=== PATIENT | female | born 1970 | race African-American/Black ===

== ENCOUNTER 2016-08-15 09:49 | Inpatient (IN) | payer SELFPAY ==
[2016-08-15] VITALS (8 sets, daily range): BP systolic 134–186; BP diastolic 74–102
[~2016-08-15] VITALS: Ht 160 cm; Wt 120.7 kg
[~2016-08-15 09:49] MED LIST: AMLO10TA4 PO; ASPI81TA44 PO; ATOR20TA PO; FLUT1DIS3 INH; FURO-68 PO; Hydrocodone/Acetaminophen PO; LISI20TA PO; METO25TA4 PO; METO50TA2 PO; Metoprolol Tartrate PO; POTA20TA4 PO; VENTOLIN HFA18 GM IH
[2016-08-15 10:17] LABS: BASO % 1 % (0-3); EOS % 1 % (0-3); HEMATOCRIT 42.1 % (36.0-47.0); HEMOGLOBIN 13.9 g/dL (12.0-15.5); LYMPH # 1.8 x10^3/uL (1.0-4.8); LYMPH % 25 % (24-48); MEAN CORPUSCULAR HEMOGLOBIN 31 pg (25-35); MEAN CORPUSCULAR HGB CONC 33 g/dL (31-37); MEAN CORPUSCULAR VOLUME 93 fL (79-100); MONO % 10 % (0-9); NEUT % 64 % (31-73); PLATELET COUNT 164 x10^3/uL (140-400); RED BLOOD COUNT 4.53 x10^6/uL (3.50-5.40); RED CELL DISTRIBUTION WIDTH 15.3 % (11.5-14.5); WHITE BLOOD COUNT 7.2 x10^3/uL (4.0-11.0)
--- NOTE | 2016-08-15 10:31 | EKG ---
[facility] [address] [place] [address] Test Date: 2016-08-15 Test Time: 10:02:58 Pat Name: FABIO RIVAS Department: Room: Gender: F Presiding Steward: : 1970 Requested By: Wellington ROCHA Order Number: [id number] Reading MD: Mulu Jo Measurements Intervals [place] Rate: 81 P: AR: QRS: -74 QRSD: 152 T: 96 QT: 410 QTc: 482 Interpretive Statements SINUS RHYTHM, ABNORMAL LEFT AXIS DEVIATION LEFT ANTERIOR FASCICULAR BLOCK VENTRICULAR TRIPLET, PVCS ABNORMAL ECG Electronically Signed On 08-19-2016 10:11:57 DRY CLIPPER TENDER by Mulu Jo
--- NOTE | 2016-08-15 10:31 | RAD ---
Portable chest, 08/15/2016: History: Chest pain, shortness of breath Comparison is made to a study from 10/19/2015. The heart is enlarged. The pulmonary vascularity appears to be within normal limits. No pulmonary infiltrates are seen. There is no evidence of pleural fluid. IMPRESSION: 1. Cardiomegaly. 2. No acute abnormality is detected.
[2016-08-15 10:49] LABS: CALCIUM 9.4 mg/dL (8.5-10.1); CREATININE 1.2 mg/dL (0.6-1.0); GFR 58.5; POTASSIUM 4.3 mmol/L (3.5-5.1)
[2016-08-15 11:01] LABS: BARBITURATES NEG (NEG); BENZODIAZEPINES NEG (NEG); CANNABINOIDS POS (NEG); COCAINE NEG (NEG); ETHANOL, URINE NEG (NEG); METHADONE NEG (NEG); OPIATES NEG (NEG); PHENCYCLIDINE NEG (NEG)
--- NOTE | 2016-08-15 12:02 | PHYS DOC ---
Past Medical History Past Medical History: CHF, High Cholesterol, Hypertension Past Surgical History: Hysterectomy Additional Past Surgical Histo: FIBROIDS REMOVED Alcohol Use: None Drug Use: None Adult General Chief Complaint Chief Complaint: CHEST PAIN HPI HPI Patient is a 46 year old female who presents with exertional dyspnea, exertional lightheadedness, intermittent brief chest pain, orthopnea, and resting shortness of breath. States her symptoms have been for the past 2 weeks but worse in the past few days. She has had few episodes of nonbloody nonbilious emesis in the past 2 days. She has no current nausea. She states she feels like this with CHF exacerbations. She does not weigh herself at home. She denies cough, rhinorrhea, nasal congestion, myalgia, diarrhea, dysuria, leg pain or swelling, hemoptysis, fever or chills. She states she has been out of her medications for weeks due to insurance changes recently. She has restarted taking some, but not all of her medications in the past few days. Review of Systems Review of Systems Constitutional: Denies fever or chills [] Eyes: Denies change in visual acuity, redness, or eye pain [] HENT: Denies nasal congestion or sore throat [] Respiratory: Denies cough or shortness of breath [] Cardiovascular: No additional information not addressed in HPI [] GI: Denies abdominal pain, nausea, vomiting, bloody stools or diarrhea [] : Denies dysuria or hematuria [] Musculoskeletal: Denies back pain or joint pain [] Integument: Denies rash or skin lesions [] Neurologic: Denies headache, focal weakness or sensory changes [] Endocrine: Denies polyuria or polydipsia [] Allergies Allergies Allergies Coded Allergies Type Severity Reaction Last Updated Verified No Known Drug Allergies 08/01/14 No Physical Exam Physical Exam Constitutional: Well developed, well nourished, no acute distress, non-toxic appearance. [] HENT: Normocephalic, atraumatic, bilateral external ears normal, oropharynx moist, nose normal. [] Eyes: PERRLA, EOMI. [] Neck: Normal range of motion, supple. [] Cardiovascular: Irregular rhythm [] Lungs & Thorax: Bilateral breath sounds clear to auscultation [] Abdomen: Bowel sounds normal, soft, no tenderness. [] Skin: Warm, dry, no erythema, no rash. [] Back: No tenderness, no CVA tenderness. [] Extremities: No tenderness, ROM intact, no edema, no palpable cord. [] Neurologic: Alert and oriented X 3, normal motor function, normal sensory function, no focal deficits noted. [] Psychologic: Affect normal, judgement normal, mood normal. [] Current Patient Data Vital Signs Vital Signs Date Time Temp Pulse Resp B/P Pulse Ox O2 Delivery O2 Flow Rate FiO2 08/15/16 11:15 60 20 212/88 98 Room Air 08/15/16 10:09 98.2 98.2 Lab Values Laboratory Tests Test 08/15/16 10:07 08/15/16 10:30 White Blood Count 7.2x10^3/uL (4.0-11.0) Red Blood Count 4.53x10^6/uL (3.50-5.40) Hemoglobin 13.9g/dL (12.0-15.5) Hematocrit 42.1% (36.0-47.0) Mean Corpuscular Volume 93fL (79-100) Mean Corpuscular Hemoglobin 31pg (25-35) Mean Corpuscular Hemoglobin Concent 33g/dL (31-37) Red Cell Distribution Width 15.3% (11.5-14.5) H Platelet Count 164x10^3/uL (140-400) Neutrophils (%) (Auto) 64% (31-73) Lymphocytes (%) (Auto) 25% (24-48) Monocytes (%) (Auto) 10% (0-9) H Eosinophils (%) (Auto) 1% (0-3) Basophils (%) (Auto) 1% (0-3) Neutrophils # (Auto) 4.6x10^3uL (1.8-7.7) Lymphocytes # (Auto) 1.8x10^3/uL (1.0-4.8) Monocytes # (Auto) 0.7x10^3/uL (0.0-1.1) Eosinophils # (Auto) 0.0x10^3/uL (0.0-0.7) Basophils # (Auto) 0.0x10^3/uL (0.0-0.2) Sodium Level 141mmol/L (136-145) Potassium Level 4.3mmol/L (3.5-5.1) Chloride Level 105mmol/L (98-107) Carbon Dioxide Level 27mmol/L (21-32) Anion Gap 9 (6-14) Blood Urea Nitrogen 21mg/dL (7-20) H Creatinine 1.2mg/dL (0.6-1.0) H Estimated GFR (Cockcroft-Gault) 58.5 Glucose Level 126mg/dL (70-99) H Calcium Level 9.4mg/dL (8.5-10.1) Magnesium Level 1.5mg/dL (1.8-2.4) L Troponin I Quantitative 0.060ng/mL (0.000-0.055) IS-Gcq-R-Type Natriuretic Peptide 12972ey/mL (0-124) H Thyroid Stimulating Hormone (TSH) 1.025uIU/mL (0.358-3.74) Urine Opiates Screen Neg (NEG) Urine Methadone Screen Neg (NEG) Urine Barbiturates Neg (NEG) Urine Phencyclidine Screen Neg (NEG) Urine Amphetamine/Methamphetamine Neg (NEG) Urine Benzodiazepines Screen Neg (NEG) Urine Cocaine Screen Neg (NEG) Urine Cannabinoids Screen Pos (NEG) Urine Ethyl Alcohol Neg (NEG) Laboratory Tests 08/15/16 10:07 Laboratory Tests 08/15/16 10:07 EKG EKG EKG as interpreted by me as sinus rhythm with frequent PVCs of bigeminy and trigeminy, rate 81, T wave inversions in inferior and lateral leads. Unable to compare to prior Radiology/Procedures Radiology/Procedures Chest xray as interpreted by me with no acute cardiopulmonary disease process Course & Med Decision Making Course & Med Decision Making Pertinent Labs and Imaging studies reviewed. (See chart for details) Laboratory exam reveals elevated proBNP and mild elevation in troponin concerning for CHF exacerbation. Has elevated troponin at this level during prior visits as well during similar illness. EKG concerning for frequent PVCs. She also has hypomagnesemia, which will be replaced IV. Discussed admission with Dr. Haddad, who will admit. Cardiology consultation placed. Renee Disclaimer Dragon Disclaimer This electronic medical record was generated, in whole or in part, using a voice recognition dictation system. Departure Departure Impression: Primary Impression: CHF exacerbation Additional Impressions: Hypomagnesemia Elevated troponin Disposition: ADMITTED INPATIENT Condition: STABLE Referrals: NO PCP (PCP) Problem Qualifiers Primary Impression: CHF exacerbation Congestive heart failure type: unspecified congestive heart failure type Qualified Code: I50.9 - Heart failure, unspecified Wellington ROCHA MD Aug 15, 2016 12:02
[2016-08-15] MEDS ORDERED: NITROGLYCERIN SUBLINGUAL 0.4 MG BOTTLE OF 25. SL PRN (12:15)
[2016-08-15] MEDS ORDERED: ACETAMINOPHEN 325 MG TABLET. PO PRN (12:15)
[2016-08-15] MEDS ORDERED: ONDANSETRON PF 4 MG/2 ML VIAL. IV PRN (12:15)
--- NOTE | 2016-08-15 13:46 | ACF ---
Admission Forms Criteria HEART FAILURE: COMMON COMPLICATIONS Clinical Indications for Inpatient Care (Place 'X' for any and all applicable criteria): Ongoing inpatient care may be indicated for heart failure with ANY ONE of the following (1)(2)(3)(4)(5): [ ]I. Ongoing need for care for primary condition requiring frequent therapy adjustments because of changes in cardiac function (eg, drug dosage changes for drugs that are renally metabolized) [ ]II. New-onset heart failure [ ]III. Heart failure with decreased urine output not responsive to attempts to optimize volume status [ ]IV. Acute cardiac ischemia causing or associated with failure [X]V. Complications of heart failure, including ANY ONE of the following: [ ]a) Pericardial effusion [ ]b) Symptomatic pleural effusion [ ]c) O2 saturation <90% or PO2 < 60 mm Hg (8.0 kPa) on room air or require baseline supplemental O2 [ ]d) Tachypnea [X]e) Dyspnea [ ]f) Syncope [ ]g) Change in mental status [ ]h) Acute renal insufficiency that is severe (reduction of more than 50% in estimated glomerular filtration rate from baseline) or progressive reduction of more than 25% in estimated glomerular filtration rate from baseline, with creatinine continuing to rise) [ ]i) Hemodynamic instability [ ]j) Anasarca [ ]k) Clinically significant metabolic abnormalities due to heart failure (eg, new-onset metabolic acidosis) Extended stay beyond goal length of stay for primary condition may be needed until ALL of the following are present(1)(3): [ ]a) Stable and effective diuretic regimen established (or patient on stable dialysis regimen if in chronic renal failure) [ ]b) Breathing comfortably at rest [ ]c) Saturation of arterial oxygen greater than 90% or at acceptable baseline [ ]d) Pulmonary edema absent or improved [ ]e) Hemodynamic stability [ ]f) Volume status acceptable on oral medication [ ]g) Peripheral or sacral edema absent or improved [ ]h) Renal function stable and manageable at a lower level of care [ ]i) Complications (eg, pleural effusion) resolved or manageable at a lower level of care [ ]j) Patient or caregiver has received written discharge instructions or educational material addressing activity level, diet, discharge medications, follow-up appointment, weight monitoring, and what to do if symptoms worsen The original [facility] content created by [employer] has been revised. The portions of the content which have been revised are identified through the use of italic text or in bold, and [facility] has neither reviewed nor approved the modified material.All other unmodified content is copyright [facility]. Please see references footnoted in the original [facility] edition 2016 Admission Criteria Met?: Yes SELENA TIJERINA Aug 15, 2016 13:46
[2016-08-15] MEDS ORDERED: hydrALAZINE 20 MG/ML VIAL. IVP ONE (14:30)
[2016-08-15] MEDS ORDERED: MAGNESIUM SULFATE 2GM 50 ML IV ONE ×2 (14:45→22:30)
[2016-08-15] MEDS ORDERED: NON FORMULARY ITEM (Albuterol Sulfate (Ventolin Hfa Inhaler) 2 PUFF) IH SCH (14:45)
[2016-08-15] MEDS ORDERED: hydrALAZINE 20 MG/ML VIAL. IVP PRN (14:45)
--- NOTE | 2016-08-15 14:45 | PDOC2 ---
CARDIAC CONSULT DATE OF CONSULT Date of Consult DATE: 08/15/16 TIME: 14:30 REASON FOR CONSULT Reason for Consult: CHF exacerbation REFERRING PHYSICIAN Referring Physician: White SOURCE Source: Chart review, Patient HISTORY OF PRESENT ILLNESS HISTORY OF PRESENT ILLNESS This is a pleasant 46 yo female admitted for complains of SOA. Reports that at rest she is fine but with short ambulation, like going to the bathroom she gets SOA. Reports that this has been going on in the last 2 weeks. She has been compliant with her home medications including her lasix till 3 weeks ago when she ran out of most of her medications. 2 weeks ago is when she started having TYLER. She has been having issues with financial means trying to obtain medical insurance. She finally was able to obtain most of her routine medications about a week ago but her symptoms continued to progress despite her restarting. Reports of orthopnea, PND, intermittent dry intractable coughing, continued TYLER at short distance walking, focal mid chest tightness and [place]. Also with anorexia, polydipsia, increased urination prompting her to drink more. Also has been having nausea with last vomiting episode last night. Reports also of self limiting diarrhea and vomiting last week x3 days. PAST MEDICAL HISTORY Past Medical History Cardiovascular: CHF (NICM), HTN, Hyperlipidemia, Valve insufficiency Pulmonary: COPD (?) CENTRAL NERVOUS SYSTEM: Other (no pertinent history) GI: No pertinent hx Heme/Onc: No pertinent hx Hepatobiliary: No pertinent hx Psych: No pertinent hx Musculoskeletal: Osteoarthritis Rheumatologic: No pertinent hx Infectious disease: No pertinent hx ENT: No pertinent hx Renal/: No pertinent hx Endocrine: Diabetes (gestational) Dermatology: No pertinent hx PAST SURGICAL HISTORY Past Surgical History: Hysterectomy FAMILY HISTORY Family History noncontributory SOCIAL HISTORY Social History Smoke: Quit 05/2016 24 pk yr ALCOHOL: none Drugs: None Lives: with Family CURRENT MEDICATIONS CURRENT MEDICATIONS Current Medications Medications (Trade) Dose Ordered Sig/Shaheed Route PRN Reason Start Time Stop Time Status Last Admin Dose Admin Acetaminophen (Tylenol) 650 mg PRN Q4HRS PRN PO FEVER 08/15/16 12:15 08/16/16 12:14 08/15/16 12:13 Hydralazine HCl (Apresoline) 10 mg 1X ONCE IVP 08/15/16 14:30 08/15/16 14:31 08/15/16 14:24 ALLERGIES ALLERGIES: Coded Allergies: No Known Drug Allergies (Unverified , 08/01/14) ROS Review of System 14 point ROS evaluated with pertinent positives noted per HPI PHYSICAL EXAM General: Alert, Oriented X3, Cooperative, No acute distress HEENT: Atraumatic, Mucous membr. moist/pink Lungs: Clear to auscultation, Normal air movement Heart: Regular rate, Normal S1, Normal S2, Other (2/6 systolic murmur to LLS border) Abdomen: Soft, Other (morbid obesity) Extremities: No cyanosis, Other (2+ bilateral LE pitting edema) Skin: No breakdown, No significant lesion Neuro: Normal speech, Sensation intact Psych/Mental Status: Mental status NL, Mood NL MUSCULOSKELETAL: Osteoarthritic changes both hands VITALS VITALS Vital Signs Date Time Temp Pulse Resp B/P Pulse Ox O2 Delivery O2 Flow Rate FiO2 08/15/16 14:24 59 186/102 08/15/16 13:15 20 96 Room Air 08/15/16 10:09 98.2 98.2 LABS Lab: Laboratory Tests Test 08/15/16 10:07 08/15/16 10:30 White Blood Count 7.2x10^3/uL (4.0-11.0) Red Blood Count 4.53x10^6/uL (3.50-5.40) Hemoglobin 13.9g/dL (12.0-15.5) Hematocrit 42.1% (36.0-47.0) Mean Corpuscular Volume 93fL (79-100) Mean Corpuscular Hemoglobin 31pg (25-35) Mean Corpuscular Hemoglobin Concent 33g/dL (31-37) Red Cell Distribution Width 15.3% (11.5-14.5) Platelet Count 164x10^3/uL (140-400) Neutrophils (%) (Auto) 64% (31-73) Lymphocytes (%) (Auto) 25% (24-48) Monocytes (%) (Auto) 10% (0-9) Eosinophils (%) (Auto) 1% (0-3) Basophils (%) (Auto) 1% (0-3) Neutrophils # (Auto) 4.6x10^3uL (1.8-7.7) Lymphocytes # (Auto) 1.8x10^3/uL (1.0-4.8) Monocytes # (Auto) 0.7x10^3/uL (0.0-1.1) Eosinophils # (Auto) 0.0x10^3/uL (0.0-0.7) Basophils # (Auto) 0.0x10^3/uL (0.0-0.2) Sodium Level 141mmol/L (136-145) Potassium Level 4.3mmol/L (3.5-5.1) Chloride Level 105mmol/L (98-107) Carbon Dioxide Level 27mmol/L (21-32) Anion Gap 9 (6-14) Blood Urea Nitrogen 21mg/dL (7-20) Creatinine 1.2mg/dL (0.6-1.0) Estimated GFR (Cockcroft-Gault) 58.5 Glucose Level 126mg/dL (70-99) Calcium Level 9.4mg/dL (8.5-10.1) Magnesium Level 1.5mg/dL (1.8-2.4) Troponin I Quantitative 0.060ng/mL (0.000-0.055) QH-Sfj-L-Type Natriuretic Peptide 35041bl/mL (0-124) Urine Opiates Screen Neg (NEG) Urine Methadone Screen Neg (NEG) Urine Barbiturates Neg (NEG) Urine Phencyclidine Screen Neg (NEG) Urine Amphetamine/Methamphetamine Neg (NEG) Urine Benzodiazepines Screen Neg (NEG) Urine Cocaine Screen Neg (NEG) Urine Cannabinoids Screen Pos (NEG) Urine Ethyl Alcohol Neg (NEG) ECHOCARDIOGRAM ECHOCARDIOGRAM <Conclusion> Left ventricle systolic function is severely impaired. The Ejection Fraction is 20-25%. There is global hypokinesis of the left ventricle. Suspect at least grade 2-3 diastolic dysfunction (moderate to severe) Doppler and Color Flow revealed moderate tricuspid regurgitation. There is moderate pulmonary hypertension. The PA pressure was estimated at 66 mmHg. DATE: 10/19/15 1751 HEART CATH HEART CATH CORONARY FINDINGS: LM is a long large caliber vessel with normal angiographic appearance. LAD is a large caliber tortous vessel with normal angiographic appearance. The LAD gives rise to two small caliber diagonal vessels with normal angiographic appearance. LCx is a large caliber non-dominant vessel with normal angiographic appearance. The LCx gives rise to two moderate caliber obtuse marginal vessels with normal angiographic appearance. RCA is a moderate caliber dominant vessel with normal angiographic appearance. Conclusion 1. Mildly elevated left ventricular filling pressures. 2. Mild to moderate LV dysfunction. EF 40% 3. Normal angiographic appearance of the coronary arteries. 4. Successful angioseal closure of the RCFA. 5. Frequent PVC's. Recommendations Aggressive Medical Therapy DATE: 05/04/15 1049 ASSESSMENT/PLAN ASSESSMENT/PLAN 1. Acute on chronic combined diastolic/systolic CHF: mainly right sided. 2. 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 NICM: Last noted EF 20-25%. Failed to follow up in our office for TTE reevaluation for consideration for AICD. 4. Accelerated HTN: due to noncompliance 5. HLP 6. Arrhythmia: multiple PVCs including NSVT. 7. Hypomagnesemia 8. Marijuana use 9. CKD3 Recommendations 1. Continue with diuretic therapy 2. CT chest noncontrast, TTE 3. Resume home routine antiHTN, Hydralazine IV PRN. Change lisinopril to losartan with notable dry cough. 4. Discussed compliance to treatment plans. 5. SW and CM consult. 6. Replace Mg. Restart metoprolol 7. TSH, lipid panel. Lytes in AM. 8. Continue with secondary prevention measures. Problems: AMAN BARRON APRN Aug 15, 2016 14:45
[2016-08-15] MEDS ORDERED: ALBUTEROL SULFATE 2.5 MG/3 ML NEBU. NEB PRN (15:15)
--- NOTE | 2016-08-15 16:03 | PDOC1 ---
History and Physical Date of Admission Date of Admission DATE: 08/15/16 TIME: 15:57 Identification/Chief Complaint Chief Complaint short of breath Source Source: Chart review, Patient History of Present Illness History of Present Illness Ms. Benitez, is a 46 year old female admitted for acute dyspnea, w. chest pain , 11/16./ She also complains of exertional lightheadedness, new orthopnea, and resting shortness of breath. Per CV history, pt has not taken her medicines for a period of time, just started back 2 days ago, all meds but Lisinopril Pt was ill last week, a few days of malaise and myalgia with diarrhea dyspnea feels better after lasix given in the ER she reports no current primary care due to change in her insurance Past Medical History Cardiovascular: CHF, HTN, Hyperlipidemia, Valve insufficiency Pulmonary: COPD CENTRAL NERVOUS SYSTEM: Other GI: No pertinent hx Heme/Onc: No pertinent hx Hepatobiliary: No pertinent hx Psych: No pertinent hx Musculoskeletal: Osteoarthritis Rheumatologic: No pertinent hx Infectious disease: No pertinent hx Renal/: No pertinent hx Endocrine: Diabetes Past Surgical History Past Surgical History: Hysterectomy Family History Family History: No Significant Social History Smoke: No ALCOHOL: none Drugs: Marijuana Current Problem List Problem List Problems Medical Problems: (1) CHF exacerbation Status: Acute (2) Elevated troponin Status: Acute (3) Hypomagnesemia Status: Acute Problems: Current Medications Current Medications Current Medications Ondansetron HCl (Zofran) 4 mg PRN Q8HRS PRN IV NAUSEA/VOMITING; Start 08/15/16 at 12:15; Stop 08/16/16 at 12:14 Acetaminophen (Tylenol) 650 mg PRN Q4HRS PRN PO FEVER Last administered on 12:13; Start 08/15/16 at 12:15; Stop 08/16/16 at 12:14 Nitroglycerin (Nitrostat) 0.4 mg PRN Q5MIN PRN SL CHEST PAIN; Start 08/15/16 at 12:15; Stop 08/16/16 at 12:14 Hydralazine HCl 10 mg 10 mg 1X ONCE IVP Last administered on 08/15/16 14:24; Start 08/15/16 at 14:30; Stop 08/15/16 at 14:31; Status DC Magnesium Sulfate/ Dextrose (Magnesium Sulfate PREMIX 2GM) 50 ml @ 25 mls/hr 1X ONCE IV Last administered on 08/15/16t 15:25; Start 08/15/16 at 14:45; Stop 08/15/16 at 16:44 Hydralazine HCl (Apresoline) 10 mg PRN Q4HRS PRN IVP ELEVATED BP, SEE COMMENTS ; Start 08/15/16 at 14:45 Amlodipine Besylate (Norvasc) 10 mg DAILY PO ; Start 08/16/16 at 09:00 Aspirin (Children'S Aspirin) 81 mg DAILYWBKFT PO ; Start 08/16/16 at 08:00 Atorvastatin Calcium (Lipitor) 20 mg QHS PO ; Start 08/15/16 at 21:00 Furosemide (Lasix) 40 mg DAILY PO ; Start 08/16/16 at 09:00; Stop 08/16/16 at 09: 00; Status DC Lisinopril (Prinivil) 40 mg DAILY PO ; Start 08/16/16 at 09:00; Stop 08/16/16 at 09:00; Status DC Metoprolol Tartrate (Lopressor) 25 mg BID PO ; Start 08/15/16 at 21:00 Potassium Chloride (Klor-Con) 20 meq DAILYWBKFT PO ; Start 08/16/16 at 08:00 Non-Formulary Medication 2 puff PRN Q4-6HRS IH ; Start 08/15/16 at 14:45; Status UNV Albuterol Sulfate (Ventolin Neb Soln) 2.5 mg PRN Q4HRS PRN NEB SHORTNESS OF BREATH; Start 08/15/16 at 15:15 Losartan Potassium (Cozaar) 100 mg DAILY PO ; Start 08/16/16 at 09:00 Furosemide (Lasix) 40 mg DAILY IVP ; Start 08/16/16 at 09:00 Active Scripts Active Metoprolol Tartrate 25 Mg Tablet 25 Mg PO BID Norvasc (Amlodipine Besylate) 10 Mg Tablet 10 Mg PO DAILY Ventolin Hfa Inhaler (Albuterol Sulfate) 18 Gm Hfa.aer.ad 2 Puff IH PRN Q4-6HRS Klor-Con M20 (Potassium Chloride) 20 Meq Tablet.er 20 Meq PO DAILYWBKFT Prinivil (Lisinopril) 20 Mg Tablet 40 Mg PO DAILY Lasix (Furosemide) 40 Mg Tablet 40 Mg PO DAILY Children's Aspirin (Aspirin) 81 Mg Tab.chew 81 Mg PO DAILYWBKFT Lipitor (Atorvastatin Calcium) 20 Mg Tablet 20 Mg PO QHS Allergies Allergies: Coded Allergies: No Known Drug Allergies (Unverified , 08/01/14) ROS General: YES: Fatigue, Malaise, No: Appetite, Chills, Night Sweats, Other PSYCHOLOGICAL ROS: No: Anxiety, Behavioral Disorder, Concentration difficultie , Decreased libido, Depression, Disorientation, Hallucinations, Hostility, Irritablity, Memory difficulties, Mood Swings, Obsessive thoughts, Other, Physical abuse, Sexual abuse, Sleep disturbances, Suicidal ideation Eyes: No Blurry vision, No Decreased vision, No Double vision, No Dry eyes, No Excessive tearing, No Eye Pain, No Itchy Eyes, No Loss of vision, No Other, No Photophobia, No Scotomata, No Uses contacts, No Uses glasses HEENT: YES: Heacaches, No: Epistaxis, Hearing change, Nasal congestion, Nasal discharge, Oral lesions, Other, Sinus pain, Sneezing, Snoring, Sore Throat, Tinnitus, Vertigo, Visual Changes, Vocal changes Respiratory: YES: SOB with excertion, Shortness of breath, No: Cough, Hemoptysis, Orthopnea, Other, Pleuritic Pain, Sputum Changes, Stridor, Tachypnea, Wheezing Cardiovascular: yes Orthopnea, yes Paroxysmal Noc. Dyspnea, No Chest Pain, No Lt Headedness, No Other, No Palpitations Gastrointestinal: Yes Diarrhea, Yes Nausea, No Abdominal Pain, No Constipation, No Hematochezia, No Melena, No Other, No Vomiting Genitourinary: No , No , No , No , No , No , No , No Discharge, No Dysuria, No Flank Pain, No Frequency, No Hematuria, No Incontinence, No Other, No Pain, No Retention, No Urgency Musculoskeletal: No Gait Disturbance, No Joint Pain, No Joint Stiffness, No Joint Swelling, No Muscle Pain, No Muscular Weakness, No Other, No Pain In:, No Swelling In: Neurological: No Behavorial Changes, No Bowel/Bladder ControlChng, No Confusion , No Dizziness, No Gait Disturbance, No Headaches, No Impaired Coord/balance, No Memory Loss, No Numbness/Tingling, No Other, No Seizures, No Speech Problems , No Tremors, No Visual Changes, No Weakness Skin: Yes Dry Skin, No Acne, No Eczema, No Hair Changes, No Lumps, No Mole Changes, No Mottling, No Nail Changes, No Other, No Pruritus, No Rash, No Skin Lesion Changes Physical Exam General: Alert, Oriented X3, Cooperative, mild distress HEENT: Atraumatic, EOMI, Mucous membr. moist/pink Lungs: Normal air movement Heart: no murmurs Abdomen: Normal bowel sounds, Soft Rectal Exam: not examined, deferred Extremities: No clubbing, Normal pulses, Other (1+ LE edema) Skin: No rashes, No significant lesion Neuro: Normal tone, Sensation intact Psych/Mental Status: Mental status NL, Mood NL Vitals Vitals Vital Signs Date Time Temp Pulse Resp B/P Pulse Ox O2 Delivery O2 Flow Rate FiO2 08/15/16 15:40 68 18 161/85 99 Room Air 08/15/16 14:15 97.7 97.7 Labs Labs Laboratory Tests Test 08/15/16 10:07 08/15/16 10:30 White Blood Count 7.2x10^3/uL (4.0-11.0) Red Blood Count 4.53x10^6/uL (3.50-5.40) Hemoglobin 13.9g/dL (12.0-15.5) Hematocrit 42.1% (36.0-47.0) Mean Corpuscular Volume 93fL (79-100) Mean Corpuscular Hemoglobin 31pg (25-35) Mean Corpuscular Hemoglobin Concent 33g/dL (31-37) Red Cell Distribution Width 15.3% (11.5-14.5) Platelet Count 164x10^3/uL (140-400) Neutrophils (%) (Auto) 64% (31-73) Lymphocytes (%) (Auto) 25% (24-48) Monocytes (%) (Auto) 10% (0-9) Eosinophils (%) (Auto) 1% (0-3) Basophils (%) (Auto) 1% (0-3) Neutrophils # (Auto) 4.6x10^3uL (1.8-7.7) Lymphocytes # (Auto) 1.8x10^3/uL (1.0-4.8) Monocytes # (Auto) 0.7x10^3/uL (0.0-1.1) Eosinophils # (Auto) 0.0x10^3/uL (0.0-0.7) Basophils # (Auto) 0.0x10^3/uL (0.0-0.2) Sodium Level 141mmol/L (136-145) Potassium Level 4.3mmol/L (3.5-5.1) Chloride Level 105mmol/L (98-107) Carbon Dioxide Level 27mmol/L (21-32) Anion Gap 9 (6-14) Blood Urea Nitrogen 21mg/dL (7-20) Creatinine 1.2mg/dL (0.6-1.0) Estimated GFR (Cockcroft-Gault) 58.5 Glucose Level 126mg/dL (70-99) Calcium Level 9.4mg/dL (8.5-10.1) Magnesium Level 1.5mg/dL (1.8-2.4) Troponin I Quantitative 0.060ng/mL (0.000-0.055) GJ-Afb-D-Type Natriuretic Peptide 85348li/mL (0-124) Thyroid Stimulating Hormone (TSH) 1.025uIU/mL (0.358-3.74) Urine Opiates Screen Neg (NEG) Urine Methadone Screen Neg (NEG) Urine Barbiturates Neg (NEG) Urine Phencyclidine Screen Neg (NEG) Urine Amphetamine/Methamphetamine Neg (NEG) Urine Benzodiazepines Screen Neg (NEG) Urine Cocaine Screen Neg (NEG) Urine Cannabinoids Screen Pos (NEG) Urine Ethyl Alcohol Neg (NEG) Laboratory Tests Test 08/15/16 10:07 08/15/16 10:30 White Blood Count 7.2x10^3/uL (4.0-11.0) Red Blood Count 4.53x10^6/uL (3.50-5.40) Hemoglobin 13.9g/dL (12.0-15.5) Hematocrit 42.1% (36.0-47.0) Mean Corpuscular Volume 93fL (79-100) Mean Corpuscular Hemoglobin 31pg (25-35) Mean Corpuscular Hemoglobin Concent 33g/dL (31-37) Red Cell Distribution Width 15.3% (11.5-14.5) Platelet Count 164x10^3/uL (140-400) Neutrophils (%) (Auto) 64% (31-73) Lymphocytes (%) (Auto) 25% (24-48) Monocytes (%) (Auto) 10% (0-9) Eosinophils (%) (Auto) 1% (0-3) Basophils (%) (Auto) 1% (0-3) Neutrophils # (Auto) 4.6x10^3uL (1.8-7.7) Lymphocytes # (Auto) 1.8x10^3/uL (1.0-4.8) Monocytes # (Auto) 0.7x10^3/uL (0.0-1.1) Eosinophils # (Auto) 0.0x10^3/uL (0.0-0.7) Basophils # (Auto) 0.0x10^3/uL (0.0-0.2) Sodium Level 141mmol/L (136-145) Potassium Level 4.3mmol/L (3.5-5.1) Chloride Level 105mmol/L (98-107) Carbon Dioxide Level 27mmol/L (21-32) Anion Gap 9 (6-14) Blood Urea Nitrogen 21mg/dL (7-20) Creatinine 1.2mg/dL (0.6-1.0) Estimated GFR (Cockcroft-Gault) 58.5 Glucose Level 126mg/dL (70-99) Calcium Level 9.4mg/dL (8.5-10.1) Magnesium Level 1.5mg/dL (1.8-2.4) Troponin I Quantitative 0.060ng/mL (0.000-0.055) UY-Ruk-Q-Type Natriuretic Peptide 77735ne/mL (0-124) Thyroid Stimulating Hormone (TSH) 1.025uIU/mL (0.358-3.74) Urine Opiates Screen Neg (NEG) Urine Methadone Screen Neg (NEG) Urine Barbiturates Neg (NEG) Urine Phencyclidine Screen Neg (NEG) Urine Amphetamine/Methamphetamine Neg (NEG) Urine Benzodiazepines Screen Neg (NEG) Urine Cocaine Screen Neg (NEG) Urine Cannabinoids Screen Pos (NEG) Urine Ethyl Alcohol Neg (NEG) VTE Prophylaxis Ordered VTE Prophylaxis Devices: Yes VTE Pharmacological Prophylaxi: Yes Assessment/Plan Assessment/Plan Acute exacerbation of systolic CHF fluid overload, IV lasix, CV consult repeat echo troponinemia, will trend hypomagnesemia obesity, BMI 40 htn, poor control THC use admit to CV care JANETH TORREZ MD Aug 15, 2016 16:02
--- NOTE | 2016-08-15 17:00 | RAD ---
Indication shortness of breath. History of COPD. Noncontrast imaging through the chest was performed. The noncontrast nature the study somewhat limits the exam. Note is made of a previous examination of the chest 10/19/2015. Imaging through the upper abdomen is unremarkable. Enlargement of the left lobe of the thyroid probably with some associated mediastinal extension is again noted. The appearance is very similar to the previous exam. A few mediastinal lymph nodes are noted. These also appear similar. Definite pathologic hilar or mediastinal adenopathy is not seen. An acute finding in the chest is not seen. A dominant soft tissue mass is not apparent. A significant change when compared to the previous exam is not seen. IMPRESSION: No acute finding. No significant change PQRS Compliance Statement: One or more of the following individualized dose reduction techniques were utilized for this examination: 1. Automated exposure control 2. Adjustment of the mA and/or kV according to patient size 3. Use of iterative reconstruction technique
[2016-08-15] MEDS: ATORVASTATIN CALCIUM 20 MG TABLET PO SCH (21:42)
[2016-08-15] MEDS: METOPROLOL TART IMMED RELEASE 25 MG TABLET PO SCH (21:44)
[2016-08-16 04:25] VITALS: BP 140/91
[2016-08-16 05:12] LABS: BASO % 1 % (0-3); EOS % 1 % (0-3); HEMATOCRIT 38.1 % (36.0-47.0); HEMOGLOBIN 12.3 g/dL (12.0-15.5); LYMPH # 1.8 x10^3/uL (1.0-4.8); LYMPH % 32 % (24-48); MEAN CORPUSCULAR HEMOGLOBIN 31 pg (25-35); MEAN CORPUSCULAR HGB CONC 32 g/dL (31-37); MEAN CORPUSCULAR VOLUME 95 fL (79-100); MONO % 11 % (0-9); NEUT % 55 % (31-73); PLATELET COUNT 141 x10^3/uL (140-400); RED BLOOD COUNT 4.03 x10^6/uL (3.50-5.40); RED CELL DISTRIBUTION WIDTH 15.6 % (11.5-14.5); WHITE BLOOD COUNT 5.6 x10^3/uL (4.0-11.0)
[2016-08-16 05:37] LABS: CALCIUM 8.8 mg/dL (8.5-10.1); CREATININE 1.1 mg/dL (0.6-1.0); GFR 64.7; MAGNESIUM 2.5 mg/dL (1.8-2.4); POTASSIUM 3.7 mmol/L (3.5-5.1)
[2016-08-16 07:50] VITALS: BP 189/96
[2016-08-16] MEDS: ASPIRIN 81 MG TAB.CHEW PO SCH (08:00)
[2016-08-16] MEDS ORDERED: POTASSIUM CHLORIDE 20 MEQ TABLET.ER. PO SCH (08:00)
[2016-08-16] MEDS: LOSARTAN POTASSIUM 50 MG TABLET. PO SCH (08:09)
[2016-08-16] MEDS ORDERED: FUROSEMIDE 40 MG TABLET PO SCH (09:00)
[2016-08-16] MEDS ORDERED: FUROSEMIDE 40 MG/4 ML VIAL IVP SCH (09:00)
[2016-08-16] MEDS ORDERED: AMLODIPINE BESYLATE 10 MG TABLET PO SCH (09:00)
[2016-08-16] MEDS: METOPROLOL TART IMMED RELEASE 25 MG TABLET PO SCH ×2 (09:00→20:50)
[2016-08-16] MEDS ORDERED: LISINOPRIL 20 MG TABLET PO SCH (09:00)
[2016-08-16 09:13] LABS: ALBUMIN 2.9 g/dL (3.4-5.0); DIRECT BILIRUBIN 0.3 mg/dL (0.0-0.2); TOTAL BILIRUBIN 0.8 mg/dL (0.2-1.0); TOTAL PROTEIN 6.6 g/dL (6.4-8.2)
--- NOTE | 2016-08-16 09:35 | PDOC ---
CARDIO Progress Notes Date and Time Date of Service 08/16/2016 Time of Evaluation 0900 Subjective Subjective: No Chest Pain, No shortness of breath, No Palpitations, No Dizziness, Other (SOA much better, appetite better) Vitals Vitals Vital Signs Date Time Temp Pulse Resp B/P Pulse Ox O2 Delivery O2 Flow Rate FiO2 08/16/16 09:00 62 165/78 08/16/16 07:51 Room Air 08/16/16 07:50 98.1 20 95 98.1 Weight Weight [ ] Input and Output Intake and Output Intake and Output 08/16/16 07:00 Intake Total 930 ml Output Total 850 ml Balance 80 ml Intake Oral 930 ml Output Urine Total 850 ml # Voids 1 Laboratory Labs Laboratory Tests Test 08/15/16 10:07 08/15/16 10:30 08/15/16 20:05 08/16/16 04:52 White Blood Count 7.2x10^3/uL (4.0-11.0) 5.6x10^3/uL (4.0-11.0) Red Blood Count 4.53x10^6/uL (3.50-5.40) 4.03x10^6/uL (3.50-5.40) Hemoglobin 13.9g/dL (12.0-15.5) 12.3g/dL (12.0-15.5) Hematocrit 42.1% (36.0-47.0) 38.1% (36.0-47.0) Mean Corpuscular Volume 93fL (79-100) 95fL (79-100) Mean Corpuscular Hemoglobin 31pg (25-35) 31pg (25-35) Mean Corpuscular Hemoglobin Concent 33g/dL (31-37) 32g/dL (31-37) Red Cell Distribution Width 15.3% (11.5-14.5) 15.6% (11.5-14.5) Platelet Count 164x10^3/uL (140-400) 141x10^3/uL (140-400) Neutrophils (%) (Auto) 64% (31-73) 55% (31-73) Lymphocytes (%) (Auto) 25% (24-48) 32% (24-48) Monocytes (%) (Auto) 10% (0-9) 11% (0-9) Eosinophils (%) (Auto) 1% (0-3) 1% (0-3) Basophils (%) (Auto) 1% (0-3) 1% (0-3) Neutrophils # (Auto) 4.6x10^3uL (1.8-7.7) 3.1x10^3uL (1.8-7.7) Lymphocytes # (Auto) 1.8x10^3/uL (1.0-4.8) 1.8x10^3/uL (1.0-4.8) Monocytes # (Auto) 0.7x10^3/uL (0.0-1.1) 0.6x10^3/uL (0.0-1.1) Eosinophils # (Auto) 0.0x10^3/uL (0.0-0.7) 0.1x10^3/uL (0.0-0.7) Basophils # (Auto) 0.0x10^3/uL (0.0-0.2) 0.0x10^3/uL (0.0-0.2) Sodium Level 141mmol/L (136-145) 141mmol/L (136-145) Potassium Level 4.3mmol/L (3.5-5.1) 3.7mmol/L (3.5-5.1) Chloride Level 105mmol/L (98-107) 105mmol/L (98-107) Carbon Dioxide Level 27mmol/L (21-32) 28mmol/L (21-32) Anion Gap 9 (6-14) 8 (6-14) Blood Urea Nitrogen 21mg/dL (7-20) 20mg/dL (7-20) Creatinine 1.2mg/dL (0.6-1.0) 1.1mg/dL (0.6-1.0) Estimated GFR (Cockcroft-Gault) 58.5 64.7 Glucose Level 126mg/dL (70-99) 100mg/dL (70-99) Calcium Level 9.4mg/dL (8.5-10.1) 8.8mg/dL (8.5-10.1) Magnesium Level 1.5mg/dL (1.8-2.4) 1.5mg/dL (1.8-2.4) 2.5mg/dL (1.8-2.4) Troponin I Quantitative 0.060ng/mL (0.000-0.055) 0.057ng/mL (0.000-0.055) XH-Wcz-A-Type Natriuretic Peptide 18194rz/mL (0-124) Thyroid Stimulating Hormone (TSH) 1.025uIU/mL (0.358-3.74) Urine Opiates Screen Neg (NEG) Urine Methadone Screen Neg (NEG) Urine Barbiturates Neg (NEG) Urine Phencyclidine Screen Neg (NEG) Urine Amphetamine/Methamphetamine Neg (NEG) Urine Benzodiazepines Screen Neg (NEG) Urine Cocaine Screen Neg (NEG) Urine Cannabinoids Screen Pos (NEG) Urine Ethyl Alcohol Neg (NEG) Total Bilirubin 0.8mg/dL (0.2-1.0) Direct Bilirubin 0.3mg/dL (0.0-0.2) Aspartate Amino Transf (AST/SGOT) 18U/L (15-37) Alanine Aminotransferase (ALT/SGPT) 19U/L (14-59) Alkaline Phosphatase 60U/L (46-116) Total Protein 6.6g/dL (6.4-8.2) Albumin 2.9g/dL (3.4-5.0) Triglycerides Level 75mg/dL (0-150) Cholesterol Level 121mg/dL (0-200) LDL Cholesterol, Calculated 76mg/dL (0-100) VLDL Cholesterol, Calculated 15mg/dL (0-40) HDL Cholesterol 30mg/dL (40-60) Cholesterol/HDL Ratio 4.0 Physical Exam HEENT: Neck Supple W Full Motion Chest: Symmetric LUNGS: Clear to Auscultation Heart: S1S2, RRR Abdomen: Soft N/T Extremities: No Calf Tenderness, Other (Trace LE edema) Neurology: alert, oriented, follow commands Assessment Assessment 1. Acute on chronic combined diastolic/systolic CHF: mainly right sided. Much improved. NYHA 2 2. 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 NICM 4. Accelerated HTN: due to noncompliance 5. HLP 6. Arrhythmia: multiple PVCs including NSVT. 7. Hypomagnesemia: resolved 8. Marijuana use 9. CKD3 10. Noncompliance: mainly due to lack of financial means. Recommendations 1. Continue with lasix therapy, will change to PO. Start on aldactone. DC K supplement 2. CT chest with no acute changes. TTE with unchanged EF, currently 25% with severe LV dysfunction. Will need to establish compliance then will plan for AICD as an outpt 3. Pt will need lifevest for she is high risk for SCD but will likely unable to afford the device. Will check with SS and CM regarding assistance and disability. 4. Would consider for amiodarone at least short term, will discuss with primary director software. 5. Rhythmic BP elevation at eddi, will change norvasc to 5 mg bid. Start on imdur. 6. Reinforced compliance to treatment plans. 7. Would be a good candidate for entresto but would not be able to afford the drug. 8. Continue with secondary prevention measures. 9. Tailor made routine meds to 4$ [facility] Rx. AMAN BARRON APRN Aug 16, 2016 09:35
--- NOTE | 2016-08-16 09:37 | CARD ---
APPROVED REPORT EXAM: Two-dimensional and M-mode echocardiogram with Doppler and color Doppler. Other Information Quality : Good Rhythm : Atrial Fibrillation INDICATION Dyspnea Atrial Fibrillation 2D DIMENSIONS RVDd3.7 (2.9-3.5cm)Left Atrium(2D)4.7 (1.6-4.0cm) IVSd1.6 (0.7-1.1cm)Aortic Root(2D)2.7 (2.0-3.7cm) LVDd6.0 (3.9-5.9cm)LVOT Diameter2.2 (1.8-2.4cm) PWd1.3 (0.7-1.1cm)LVDs4.7 (2.5-4.0cm) FS (%) 21.9 %SV78.0 ml LVEF(%)43.5 (>50%) Aortic Valve AoV Peak Satya.142.4cm/sAoV VTI23.7cm AO Peak GR.8.1mmHgLVOT VTI 13.42cm AO Mean GR.5mmHgAVA (VTI)2.10cm2 Mitral Valve MV E Iqmfrrnt26.4cm/sMV DECEL [id number] TDI Lateral E' P. V5.33cm/sE/Lateral E'17.1 Tricuspid Valve TR P. [id number] [id number] TR Peak Gr.[id number] LEFT VENTRICLE The Left Ventricle is mildly dilated. There is mild to moderate concentric left ventricular hypertrop hy. There is severe LV systolic dysfunction. EF 25% There is moderate to severe global hypokinesis. T issue Doppler imaging reveals moderate left ventricular diastolic dysfunction. RIGHT VENTRICLE The right ventricle is normal size. The right ventricular systolic function is normal. ATRIA The left atrium is mildly dilated. The right atrium is moderately dilated. The interatrial septum is intact with no evidence for an atrial septal defect or patent foramen ovale as noted on 2-D or Dopple r imaging. AORTIC VALVE The aortic valve is calcified but opens well. Doppler and Color Flow revealed trace to mild aortic re gurgitation. There is no significant aortic valvular stenosis. MITRAL VALVE The mitral valve is thickened but opens well. There is no evidence of mitral valve prolapse. There is no mitral valve stenosis. Doppler and Color-flow revealed mild to moderate mitral regurgitation. TRICUSPID VALVE The tricuspid valve is normal in structure and function. Doppler and Color Flow revealed moderate tri cuspid regurgitation. There is severe pulmonary hypertension. The PA pressure was estimated at 74 mmH g. There is no tricuspid valve stenosis. PULMONIC VALVE Doppler and Color Flow revealed mild pulmonic valvular regurgitation. There is no pulmonic valvular s tenosis. GREAT VESSELS The aortic root is normal in size. The ascending aorta is normal in size. The IVC is dilated and bailey apses <50% with inspiration consistent with fluid overload. PERICARDIAL EFFUSION There is no evidence of significant pericardial effusion. Critical Notification Critical Value: No <Conclusion> There is severe LV systolic dysfunction. EF 25% There is moderate to severe global hypokinesis. Doppler and Color-flow revealed mild to moderate mitral regurgitation. Doppler and Color Flow revealed moderate tricuspid regurgitation. There is severe pulmonary hypertens ion. The PA pressure was estimated at 74 mmHg. The IVC is dilated and collapses <50% with inspiration consistent with fluid overload.
--- NOTE | 2016-08-16 11:13 | PDOC ---
PROGRESS NOTES Chief Complaint Chief Complaint 1. Acute on chronic ,CHF, diastolic/systolic : BP Control and diuresis per cardiology, EF Depressed to 25%, possible AICD placement. Monitor electrolyte and intake and out put, daily weights, 2. Nicotine use 3. NICM: 25%.consideration for AICD. 4. Accelerated HTN: improving, Goal < SBP 130, iv lasix, losartan and amlodipine. 5. HLP: Lipitor 6. THC use 7.Obesity BMI 46. 8. refuse and recycling worker consult. History of Present Illness History of Present Illness SOB BETTER NO FEVER NO CHILLS. Vitals Vitals Vital Signs Date Time Temp Pulse Resp B/P Pulse Ox O2 Delivery O2 Flow Rate FiO2 08/16/16 09:00 62 165/78 08/16/16 07:51 Room Air 08/16/16 07:50 98.1 20 95 98.1 Physical Exam General: Alert, Oriented X3, Cooperative, mild distress Heart: Regular rate, Normal S1, Normal S2, Other (2/6 systolic murmur to LLS border) Lungs: Clear Abdomen: Normal bowel sounds, Soft Extremities: No clubbing, Normal pulses, Other Skin: No rashes, No significant lesion Labs LABS Laboratory Tests Test 08/15/16 20:05 08/16/16 04:52 Magnesium Level 1.5mg/dL (1.8-2.4) 2.5mg/dL (1.8-2.4) Troponin I Quantitative 0.057ng/mL (0.000-0.055) White Blood Count 5.6x10^3/uL (4.0-11.0) Red Blood Count 4.03x10^6/uL (3.50-5.40) Hemoglobin 12.3g/dL (12.0-15.5) Hematocrit 38.1% (36.0-47.0) Mean Corpuscular Volume 95fL (79-100) Mean Corpuscular Hemoglobin 31pg (25-35) Mean Corpuscular Hemoglobin Concent 32g/dL (31-37) Red Cell Distribution Width 15.6% (11.5-14.5) Platelet Count 141x10^3/uL (140-400) Neutrophils (%) (Auto) 55% (31-73) Lymphocytes (%) (Auto) 32% (24-48) Monocytes (%) (Auto) 11% (0-9) Eosinophils (%) (Auto) 1% (0-3) Basophils (%) (Auto) 1% (0-3) Neutrophils # (Auto) 3.1x10^3uL (1.8-7.7) Lymphocytes # (Auto) 1.8x10^3/uL (1.0-4.8) Monocytes # (Auto) 0.6x10^3/uL (0.0-1.1) Eosinophils # (Auto) 0.1x10^3/uL (0.0-0.7) Basophils # (Auto) 0.0x10^3/uL (0.0-0.2) Sodium Level 141mmol/L (136-145) Potassium Level 3.7mmol/L (3.5-5.1) Chloride Level 105mmol/L (98-107) Carbon Dioxide Level 28mmol/L (21-32) Anion Gap 8 (6-14) Blood Urea Nitrogen 20mg/dL (7-20) Creatinine 1.1mg/dL (0.6-1.0) Estimated GFR (Cockcroft-Gault) 64.7 Glucose Level 100mg/dL (70-99) Calcium Level 8.8mg/dL (8.5-10.1) Total Bilirubin 0.8mg/dL (0.2-1.0) Direct Bilirubin 0.3mg/dL (0.0-0.2) Aspartate Amino Transf (AST/SGOT) 18U/L (15-37) Alanine Aminotransferase (ALT/SGPT) 19U/L (14-59) Alkaline Phosphatase 60U/L (46-116) Total Protein 6.6g/dL (6.4-8.2) Albumin 2.9g/dL (3.4-5.0) Triglycerides Level 75mg/dL (0-150) Cholesterol Level 121mg/dL (0-200) LDL Cholesterol, Calculated 76mg/dL (0-100) VLDL Cholesterol, Calculated 15mg/dL (0-40) HDL Cholesterol 30mg/dL (40-60) Cholesterol/HDL Ratio 4.0 Assessment and Plan Assessmemt and Plan Problems Medical Problems: (1) CHF exacerbation Status: Acute (2) Elevated troponin Status: Acute (3) Hypomagnesemia Status: Acute Problems: Comment Review of Relevant I have reviewed the following items randy (where applicable) has been applied. Labs Laboratory Tests Test 08/15/16 10:07 08/15/16 10:30 08/15/16 20:05 08/16/16 04:52 White Blood Count 7.2x10^3/uL (4.0-11.0) 5.6x10^3/uL (4.0-11.0) Red Blood Count 4.53x10^6/uL (3.50-5.40) 4.03x10^6/uL (3.50-5.40) Hemoglobin 13.9g/dL (12.0-15.5) 12.3g/dL (12.0-15.5) Hematocrit 42.1% (36.0-47.0) 38.1% (36.0-47.0) Mean Corpuscular Volume 93fL (79-100) 95fL (79-100) Mean Corpuscular Hemoglobin 31pg (25-35) 31pg (25-35) Mean Corpuscular Hemoglobin Concent 33g/dL (31-37) 32g/dL (31-37) Red Cell Distribution Width 15.3% (11.5-14.5) 15.6% (11.5-14.5) Platelet Count 164x10^3/uL (140-400) 141x10^3/uL (140-400) Neutrophils (%) (Auto) 64% (31-73) 55% (31-73) Lymphocytes (%) (Auto) 25% (24-48) 32% (24-48) Monocytes (%) (Auto) 10% (0-9) 11% (0-9) Eosinophils (%) (Auto) 1% (0-3) 1% (0-3) Basophils (%) (Auto) 1% (0-3) 1% (0-3) Neutrophils # (Auto) 4.6x10^3uL (1.8-7.7) 3.1x10^3uL (1.8-7.7) Lymphocytes # (Auto) 1.8x10^3/uL (1.0-4.8) 1.8x10^3/uL (1.0-4.8) Monocytes # (Auto) 0.7x10^3/uL (0.0-1.1) 0.6x10^3/uL (0.0-1.1) Eosinophils # (Auto) 0.0x10^3/uL (0.0-0.7) 0.1x10^3/uL (0.0-0.7) Basophils # (Auto) 0.0x10^3/uL (0.0-0.2) 0.0x10^3/uL (0.0-0.2) Sodium Level 141mmol/L (136-145) 141mmol/L (136-145) Potassium Level 4.3mmol/L (3.5-5.1) 3.7mmol/L (3.5-5.1) Chloride Level 105mmol/L (98-107) 105mmol/L (98-107) Carbon Dioxide Level 27mmol/L (21-32) 28mmol/L (21-32) Anion Gap 9 (6-14) 8 (6-14) Blood Urea Nitrogen 21mg/dL (7-20) 20mg/dL (7-20) Creatinine 1.2mg/dL (0.6-1.0) 1.1mg/dL (0.6-1.0) Estimated GFR (Cockcroft-Gault) 58.5 64.7 Glucose Level 126mg/dL (70-99) 100mg/dL (70-99) Calcium Level 9.4mg/dL (8.5-10.1) 8.8mg/dL (8.5-10.1) Magnesium Level 1.5mg/dL (1.8-2.4) 1.5mg/dL (1.8-2.4) 2.5mg/dL (1.8-2.4) Troponin I Quantitative 0.060ng/mL (0.000-0.055) 0.057ng/mL (0.000-0.055) MF-Rad-W-Type Natriuretic Peptide 89404lc/mL (0-124) Thyroid Stimulating Hormone (TSH) 1.025uIU/mL (0.358-3.74) Urine Opiates Screen Neg (NEG) Urine Methadone Screen Neg (NEG) Urine Barbiturates Neg (NEG) Urine Phencyclidine Screen Neg (NEG) Urine Amphetamine/Methamphetamine Neg (NEG) Urine Benzodiazepines Screen Neg (NEG) Urine Cocaine Screen Neg (NEG) Urine Cannabinoids Screen Pos (NEG) Urine Ethyl Alcohol Neg (NEG) Total Bilirubin 0.8mg/dL (0.2-1.0) Direct Bilirubin 0.3mg/dL (0.0-0.2) Aspartate Amino Transf (AST/SGOT) 18U/L (15-37) Alanine Aminotransferase (ALT/SGPT) 19U/L (14-59) Alkaline Phosphatase 60U/L (46-116) Total Protein 6.6g/dL (6.4-8.2) Albumin 2.9g/dL (3.4-5.0) Triglycerides Level 75mg/dL (0-150) Cholesterol Level 121mg/dL (0-200) LDL Cholesterol, Calculated 76mg/dL (0-100) VLDL Cholesterol, Calculated 15mg/dL (0-40) HDL Cholesterol 30mg/dL (40-60) Cholesterol/HDL Ratio 4.0 Laboratory Tests Test 08/15/16 20:05 08/16/16 04:52 Magnesium Level 1.5mg/dL (1.8-2.4) 2.5mg/dL (1.8-2.4) Troponin I Quantitative 0.057ng/mL (0.000-0.055) White Blood Count 5.6x10^3/uL (4.0-11.0) Red Blood Count 4.03x10^6/uL (3.50-5.40) Hemoglobin 12.3g/dL (12.0-15.5) Hematocrit 38.1% (36.0-47.0) Mean Corpuscular Volume 95fL (79-100) Mean Corpuscular Hemoglobin 31pg (25-35) Mean Corpuscular Hemoglobin Concent 32g/dL (31-37) Red Cell Distribution Width 15.6% (11.5-14.5) Platelet Count 141x10^3/uL (140-400) Neutrophils (%) (Auto) 55% (31-73) Lymphocytes (%) (Auto) 32% (24-48) Monocytes (%) (Auto) 11% (0-9) Eosinophils (%) (Auto) 1% (0-3) Basophils (%) (Auto) 1% (0-3) Neutrophils # (Auto) 3.1x10^3uL (1.8-7.7) Lymphocytes # (Auto) 1.8x10^3/uL (1.0-4.8) Monocytes # (Auto) 0.6x10^3/uL (0.0-1.1) Eosinophils # (Auto) 0.1x10^3/uL (0.0-0.7) Basophils # (Auto) 0.0x10^3/uL (0.0-0.2) Sodium Level 141mmol/L (136-145) Potassium Level 3.7mmol/L (3.5-5.1) Chloride Level 105mmol/L (98-107) Carbon Dioxide Level 28mmol/L (21-32) Anion Gap 8 (6-14) Blood Urea Nitrogen 20mg/dL (7-20) Creatinine 1.1mg/dL (0.6-1.0) Estimated GFR (Cockcroft-Gault) 64.7 Glucose Level 100mg/dL (70-99) Calcium Level 8.8mg/dL (8.5-10.1) Total Bilirubin 0.8mg/dL (0.2-1.0) Direct Bilirubin 0.3mg/dL (0.0-0.2) Aspartate Amino Transf (AST/SGOT) 18U/L (15-37) Alanine Aminotransferase (ALT/SGPT) 19U/L (14-59) Alkaline Phosphatase 60U/L (46-116) Total Protein 6.6g/dL (6.4-8.2) Albumin 2.9g/dL (3.4-5.0) Triglycerides Level 75mg/dL (0-150) Cholesterol Level 121mg/dL (0-200) LDL Cholesterol, Calculated 76mg/dL (0-100) VLDL Cholesterol, Calculated 15mg/dL (0-40) HDL Cholesterol 30mg/dL (40-60) Cholesterol/HDL Ratio 4.0 Medications Current Medications Ondansetron HCl (Zofran) 4 mg PRN Q8HRS PRN IV NAUSEA/VOMITING; Start 08/15/16 at 12:15; Stop 08/16/16 at 12:14 Acetaminophen (Tylenol) 650 mg PRN Q4HRS PRN PO FEVER Last administered on 12:13; Start 08/15/16 at 12:15; Stop 08/16/16 at 12:14 Nitroglycerin (Nitrostat) 0.4 mg PRN Q5MIN PRN SL CHEST PAIN; Start 08/15/16 at 12:15; Stop 08/16/16 at 12:14 Hydralazine HCl 10 mg 10 mg 1X ONCE IVP Last administered on 08/15/16 14:24; Start 08/15/16 at 14:30; Stop 08/15/16 at 14:31; Status DC Magnesium Sulfate/ Dextrose (Magnesium Sulfate PREMIX 2GM) 50 ml @ 25 mls/hr 1X ONCE IV Last administered on 08/15/16 15:25; Start 08/15/16 at 14:45; Stop 08/15/16 at 16:44; Status DC Hydralazine HCl (Apresoline) 10 mg PRN Q4HRS PRN IVP ELEVATED BP, SEE COMMENTS ; Start 08/15/16 at 14:45 Amlodipine Besylate (Norvasc) 10 mg DAILY PO Last administered on 08/16/16 09: 00; Start 08/16/16 at 09:00; Stop 08/16/16 at 09:35; Status DC Aspirin (Children'S Aspirin) 81 mg DAILYWBKFT PO Last administered on 08/16/16 08:00; Start 08/16/16 at 08:00 Atorvastatin Calcium (Lipitor) 20 mg QHS PO Last administered on 08/15/16 21:42 ; Start 08/15/16 at 21:00 Furosemide (Lasix) 40 mg DAILY PO ; Start 08/16/16 at 09:00; Stop 08/16/16 at 09: 00; Status DC Lisinopril (Prinivil) 40 mg DAILY PO ; Start 08/16/16 at 09:00; Stop 08/16/16 at 09:00; Status DC Metoprolol Tartrate (Lopressor) 25 mg BID PO Last administered on 08/16/16 09: 00; Start 08/15/16 at 21:00 Potassium Chloride (Klor-Con) 20 meq DAILYWBKFT PO Last administered on 08:08; Start 08/16/16 at 08:00 Non-Formulary Medication 2 puff PRN Q4-6HRS IH ; Start 08/15/16 at 14:45; Status UNV Albuterol Sulfate (Ventolin Neb Soln) 2.5 mg PRN Q4HRS PRN NEB SHORTNESS OF BREATH Last administered on 08/15/16 17:26; Start 08/15/16 at 15:15 Losartan Potassium (Cozaar) 100 mg DAILY PO Last administered on 08/16/16 08:09 ; Start 08/16/16 at 09:00 Furosemide 40 mg 40 mg DAILY IVP Last administered on 08/16/16 09:22; Start 08/16/16 at 09:00 Magnesium Sulfate/ Dextrose (Magnesium Sulfate PREMIX 2GM) 50 ml @ 25 mls/hr 1X ONCE IV Last administered on 08/15/16 22:41; Start 08/15/16 at 22:30; Stop 08/16/16 at 00:29; Status DC Amlodipine Besylate (Norvasc) 5 mg BID PO ; Start 08/16/16 at 21:00 Active Scripts Active Metoprolol Tartrate 25 Mg Tablet 25 Mg PO BID Norvasc (Amlodipine Besylate) 10 Mg Tablet 10 Mg PO DAILY Ventolin Hfa Inhaler (Albuterol Sulfate) 18 Gm Hfa.aer.ad 2 Puff IH PRN Q4-6HRS Klor-Con M20 (Potassium Chloride) 20 Meq Tablet.er 20 Meq PO DAILYWBKFT Prinivil (Lisinopril) 20 Mg Tablet 40 Mg PO DAILY Lasix (Furosemide) 40 Mg Tablet 40 Mg PO DAILY Children's Aspirin (Aspirin) 81 Mg Tab.chew 81 Mg PO DAILYWBKFT Lipitor (Atorvastatin Calcium) 20 Mg Tablet 20 Mg PO QHS Vitals/I & O Vital Sign - Last 24 Hours 08/15/16 08/15/16 08/15/16 08/15/16 11:15 11:45 12:15 12:45 Pulse 60 66 66 56 Resp 20 20 20 20 B/P 212/88 204/92 194/102 157/102 Pulse Ox 98 96 98 98 O2 Delivery Room Air Room Air Room Air Room Air 08/15/16 08/15/16 08/15/16 08/15/16 13:15 14:15 14:24 14:30 Temp 97.7 97.7 Pulse 58 58 59 60 Resp 20 20 22 B/P 176/92 186/102 186/102 176/82 Pulse Ox 96 95 93 O2 Delivery Room Air Room Air Room Air 08/15/16 08/15/16 08/15/16 08/15/16 14:45 15:00 15:15 15:40 Pulse 64 68 68 68 Resp 18 20 20 18 B/P 168/86 173/99 173/99 161/85 Pulse Ox 99 97 97 99 O2 Delivery Room Air Room Air Room Air Room Air 08/15/16 08/15/16 08/15/16 08/15/16 16:59 17:26 20:00 20:00 Temp 98.3 98.3 Pulse 76 Resp 22 B/P Pulse Ox 97 93 O2 Delivery Room Air Room Air Room Air Room Air 08/15/16 08/15/16 08/15/16 08/16/16 21:44 21:44 23:52 04:25 Temp 97.5 98.3 97.5 98.3 Pulse 74 74 61 58 Resp 22 22 B/P 131/74 134/74 137/85 140/91 Pulse Ox 93 93 O2 Delivery Room Air Room Air Room Air 08/16/16 08/16/16 08/16/16 08/16/16 07:50 07:51 08:09 09:00 Temp 98.1 98.1 Pulse 56 58 62 Resp 20 B/P 189/96 189/101 165/78 Pulse Ox 95 O2 Delivery Room Air Room Air 08/16/16 09:00 Pulse 62 B/P 165/78 Intake and Output 08/15/16 08/15/16 08/16/16 15:00 23:00 07:00 Intake Total 450 ml 480 ml Output Total 550 ml 300 ml Balance -100 ml 180 ml JASPER JONES MD Aug 16, 2016 11:13
[2016-08-16 12:00] VITALS: BP 167/86
[2016-08-16 16:00] VITALS: BP 153/99
[2016-08-16] MEDS: AMIODARONE HCL 200 MG TABLET PO SCH (18:38)
[2016-08-16] MEDS: SPIRONOLACTONE 25 MG TABLET PO SCH (18:38)
[2016-08-16 19:15] VITALS: BP 167/85
[2016-08-16 19:49] LABS: POTASSIUM 3.9 mmol/L (3.5-5.1)
[2016-08-16] MEDS: ATORVASTATIN CALCIUM 20 MG TABLET PO SCH (20:50)
[2016-08-16] MEDS: AMLODIPINE BESYLATE 10 MG TABLET PO SCH (20:50)
[2016-08-16] MEDS ORDERED: ISOSORBIDE MONONITRATE ER 30 MG TAB.ER.24H PO SCH (21:00)
[2016-08-16 23:04] VITALS: BP 168/63
[2016-08-17 03:28] VITALS: BP 144/67
[2016-08-17] MEDS ORDERED: MORPHINE SULFATE 2 MG/ML DISP.SYRIN. IV PRN (04:15)
[2016-08-17] MEDS ORDERED: ONDANSETRON PF 4 MG/2 ML VIAL. IV PRN (04:15)
[2016-08-17] MEDS ORDERED: HYDROCODONE/APAP 5/325MG TABLET. PO PRN (04:15)
[2016-08-17 07:59] VITALS: BP 160/94
[2016-08-17] MEDS: METOPROLOL TART IMMED RELEASE 25 MG TABLET PO SCH (09:00)
[2016-08-17] MEDS ORDERED: FUROSEMIDE 40 MG TABLET PO SCH (09:00)
[2016-08-17] MEDS: SPIRONOLACTONE 25 MG TABLET PO SCH (09:18)
[2016-08-17] MEDS: ASPIRIN 81 MG TAB.CHEW PO SCH (09:18)
[2016-08-17] MEDS ORDERED: METOPROLOL TART IMMED RELEASE 25 MG TABLET PO SCH (09:30)
[2016-08-17] MEDS: LOSARTAN POTASSIUM 50 MG TABLET. PO SCH (09:37)
[2016-08-17] MEDS: AMLODIPINE BESYLATE 10 MG TABLET PO SCH (09:38)
[2016-08-17] MEDS: AMIODARONE HCL 200 MG TABLET PO SCH (09:38)
[2016-08-17 12:00] VITALS: BP 159/91
--- NOTE | 2016-08-17 12:05 | PDOC ---
AMAN BARRON PLATE MOLDER 08/17/16 1205: CARDIO Progress Notes Date and Time Date of Service 08/17/2016 Time of Evaluation 1155 Subjective Subjective: No Chest Pain, No shortness of breath, No Palpitations, No Dizziness Vitals Vitals Vital Signs Date Time Temp Pulse Resp B/P Pulse Ox O2 Delivery O2 Flow Rate FiO2 08/17/16 09:38 58 166/106 08/17/16 07:59 20 100 Room Air 08/17/16 03:28 98.3 98.3 Weight Weight [ ] Input and Output Intake and Output Intake and Output 08/17/16 07:00 Intake Total 1800 ml Output Total 2800 ml Balance -1000 ml Intake Oral 1800 ml Output Urine Total 2800 ml Laboratory Labs Laboratory Tests Test 08/16/16 19:25 Potassium Level 3.9mmol/L (3.5-5.1) Magnesium Level 2.0mg/dL (1.8-2.4) Physical Exam HEENT: Neck Supple W Full Motion Chest: Symmetric LUNGS: Clear to Auscultation Heart: S1S2, RRR Abdomen: Soft N/T Extremities: No Calf Tenderness, Other (Trace LE edema) Neurology: alert, oriented, follow commands Assessment Assessment 1. Acute on chronic combined diastolic/systolic CHF: mainly right sided. Compensated. NYHA 2 2. 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 NICM 4. Accelerated HTN: due to noncompliance, remains labile 5. HLP 6. Arrhythmia: less PVCs today 7. Hypomagnesemia: resolved 8. Marijuana use 9. CKD3 10. Noncompliance: mainly due to lack of financial means. 11. Will likely need HEDY outpt workup Recommendations 1. Lasix, aldactone, amiodarone. Decrease metoprolol with asymptomatic bradycardia in the 40s. 2. TTE with unchanged EF, currently 25% with severe LV dysfunction. Will need to establish compliance then will plan for AICD as an outpt 3. Pt will need lifevest for she is high risk for SCD but will likely unable to afford the device. Will check with SS and CM regarding assistance and disability. 4. Add hydralazine to regimen. Renal duplex this afternoon. BMP and Mg today. 6. Reinforced compliance to treatment plans. 7. Would be a good candidate for entresto but would not be able to afford the drug. 8. Continue with secondary prevention measures. 9. Tailor made routine meds to 4$ [facility] Rx. 10. Possible DC this afternoon if BP controlled. F/U in office in 4 weeks ZION CLARKE MD 08/17/16 1813: CARDIO Progress Notes Plan Plan Patient seen and examined. Agree with above nurse practitioner note. No acute events overnight. Patient feels better. Lungs are clear without any significant lower extremity edema. Had a long discussion with the patient with regards to compliant with medications. She understands. Okay to discharge from a cardiac perspective. Defer LifeVest at this time given that the patient does not have the resources from a monitor perspective. We will follow up on an outpatient basis as the patient is able to and she has discussed with psychologist social with regards to free clinics etc. that would hopefully help provide some continue to care for her. Medications have been prescribed according to the $4 list for her to be able to afford these pills. AMAN BARRON APRN Aug 17, 2016 12:05 ZION CLARKE MD Aug 17, 2016 18:13
--- NOTE | 2016-08-17 12:40 | PDOC ---
PROGRESS NOTES Chief Complaint Chief Complaint 1. Acute on chronic ,CHF, diastolic/systolic : BP Control, hydralazine started. per cardiology, EF Depressed to 25%, [facility] renal pending. non compliance. 2. Nicotine use 3. NICM: 25%.consideration for AICD but due to non compliance cardiology would like to treat her medically. 4. Accelerated HTN: improving, Goal < SBP 130, hydralazine. losartan and amlodipine. 5. HLP: Lipitor 6. THC use 7.Obesity BMI 46. 8. gaming worker consult. prognosis guarded. History of Present Illness History of Present Illness SOB BETTER NO FEVER NO CHILLS. Vitals Vitals Vital Signs Date Time Temp Pulse Resp B/P Pulse Ox O2 Delivery O2 Flow Rate FiO2 08/17/16 09:38 58 166/106 08/17/16 07:59 20 100 Room Air 08/17/16 03:28 98.3 98.3 Physical Exam General: Alert, Oriented X3, Cooperative, mild distress Heart: Regular rate, Normal S1, Normal S2, Other (2/6 systolic murmur to LLS border) Lungs: Clear Abdomen: Normal bowel sounds, Soft Extremities: No clubbing, Normal pulses, Other Skin: No rashes, No significant lesion Labs LABS Laboratory Tests Test 08/16/16 19:25 Potassium Level 3.9mmol/L (3.5-5.1) Magnesium Level 2.0mg/dL (1.8-2.4) Assessment and Plan Assessmemt and Plan Problems Medical Problems: (1) CHF exacerbation Status: Acute (2) Elevated troponin Status: Acute (3) Hypomagnesemia Status: Acute Problems: Comment Review of Relevant I have reviewed the following items randy (where applicable) has been applied. Labs Laboratory Tests Test 08/15/16 14:40 08/15/16 20:05 08/16/16 04:52 08/16/16 19:25 Nasal Screen MRSA (PCR) Negative (Negative) Magnesium Level 1.5mg/dL (1.8-2.4) 2.5mg/dL (1.8-2.4) 2.0mg/dL (1.8-2.4) Troponin I Quantitative 0.057ng/mL (0.000-0.055) White Blood Count 5.6x10^3/uL (4.0-11.0) Red Blood Count 4.03x10^6/uL (3.50-5.40) Hemoglobin 12.3g/dL (12.0-15.5) Hematocrit 38.1% (36.0-47.0) Mean Corpuscular Volume 95fL (79-100) Mean Corpuscular Hemoglobin 31pg (25-35) Mean Corpuscular Hemoglobin Concent 32g/dL (31-37) Red Cell Distribution Width 15.6% (11.5-14.5) Platelet Count 141x10^3/uL (140-400) Neutrophils (%) (Auto) 55% (31-73) Lymphocytes (%) (Auto) 32% (24-48) Monocytes (%) (Auto) 11% (0-9) Eosinophils (%) (Auto) 1% (0-3) Basophils (%) (Auto) 1% (0-3) Neutrophils # (Auto) 3.1x10^3uL (1.8-7.7) Lymphocytes # (Auto) 1.8x10^3/uL (1.0-4.8) Monocytes # (Auto) 0.6x10^3/uL (0.0-1.1) Eosinophils # (Auto) 0.1x10^3/uL (0.0-0.7) Basophils # (Auto) 0.0x10^3/uL (0.0-0.2) Sodium Level 141mmol/L (136-145) Potassium Level 3.7mmol/L (3.5-5.1) 3.9mmol/L (3.5-5.1) Chloride Level 105mmol/L (98-107) Carbon Dioxide Level 28mmol/L (21-32) Anion Gap 8 (6-14) Blood Urea Nitrogen 20mg/dL (7-20) Creatinine 1.1mg/dL (0.6-1.0) Estimated GFR (Cockcroft-Gault) 64.7 Glucose Level 100mg/dL (70-99) Calcium Level 8.8mg/dL (8.5-10.1) Total Bilirubin 0.8mg/dL (0.2-1.0) Direct Bilirubin 0.3mg/dL (0.0-0.2) Aspartate Amino Transf (AST/SGOT) 18U/L (15-37) Alanine Aminotransferase (ALT/SGPT) 19U/L (14-59) Alkaline Phosphatase 60U/L (46-116) Total Protein 6.6g/dL (6.4-8.2) Albumin 2.9g/dL (3.4-5.0) Triglycerides Level 75mg/dL (0-150) Cholesterol Level 121mg/dL (0-200) LDL Cholesterol, Calculated 76mg/dL (0-100) VLDL Cholesterol, Calculated 15mg/dL (0-40) HDL Cholesterol 30mg/dL (40-60) Cholesterol/HDL Ratio 4.0 Laboratory Tests Test 08/16/16 19:25 Potassium Level 3.9mmol/L (3.5-5.1) Magnesium Level 2.0mg/dL (1.8-2.4) Medications Current Medications Ondansetron HCl (Zofran) 4 mg PRN Q8HRS PRN IV NAUSEA/VOMITING; Start 08/15/16 at 12:15; Stop 08/16/16 at 12:14; Status DC Acetaminophen (Tylenol) 650 mg PRN Q4HRS PRN PO FEVER Last administered on 12:13; Start 08/15/16 at 12:15; Stop 08/16/16 at 12:14; Status DC Nitroglycerin (Nitrostat) 0.4 mg PRN Q5MIN PRN SL CHEST PAIN; Start 08/15/16 at 12:15; Stop 08/16/16 at 12:14; Status DC Hydralazine HCl 10 mg 10 mg 1X ONCE IVP Last administered on 08/15/16 14:24; Start 08/15/16 at 14:30; Stop 08/15/16 at 14:31; Status DC Magnesium Sulfate/ Dextrose (Magnesium Sulfate PREMIX 2GM) 50 ml @ 25 mls/hr 1X ONCE IV Last administered on 08/15/16 15:25; Start 08/15/16 at 14:45; Stop 08/15/16 at 16:44; Status DC Hydralazine HCl (Apresoline) 10 mg PRN Q4HRS PRN IVP ELEVATED BP, SEE COMMENTS ; Start 08/15/16 at 14:45 Amlodipine Besylate (Norvasc) 10 mg DAILY PO Last administered on 08/16/16 09: 00; Start 08/16/16 at 09:00; Stop 08/16/16 at 09:35; Status DC Aspirin (Children'S Aspirin) 81 mg DAILYWBKFT PO Last administered on 08/17/16 09:18; Start 08/16/16 at 08:00 Atorvastatin Calcium (Lipitor) 20 mg QHS PO Last administered on 08/16/16 20:50 ; Start 08/15/16 at 21:00 Furosemide (Lasix) 40 mg DAILY PO ; Start 08/16/16 at 09:00; Stop 08/16/16 at 09: 00; Status DC Lisinopril (Prinivil) 40 mg DAILY PO ; Start 08/16/16 at 09:00; Stop 08/16/16 at 09:00; Status DC Metoprolol Tartrate (Lopressor) 25 mg BID PO Last administered on 08/16/16 20: 50; Start 08/15/16 at 21:00; Stop 08/17/16 at 09:24; Status DC Potassium Chloride (Klor-Con) 20 meq DAILYWBKFT PO Last administered on 08:08; Start 08/16/16 at 08:00; Stop 08/16/16 at 14:28; Status DC Non-Formulary Medication 2 puff PRN Q4-6HRS IH ; Start 08/15/16 at 14:45; Status UNV Albuterol Sulfate (Ventolin Neb Soln) 2.5 mg PRN Q4HRS PRN NEB SHORTNESS OF BREATH Last administered on 08/15/16 17:26; Start 08/15/16 at 15:15 Losartan Potassium (Cozaar) 100 mg DAILY PO Last administered on 08/17/16 09:37 ; Start 08/16/16 at 09:00 Furosemide 40 mg 40 mg DAILY IVP Last administered on 08/16/16 09:22; Start 08/16/16 at 09:00; Stop 08/16/16 at 14:28; Status DC Magnesium Sulfate/ Dextrose (Magnesium Sulfate PREMIX 2GM) 50 ml @ 25 mls/hr 1X ONCE IV Last administered on 08/15/16 22:41; Start 08/15/16 at 22:30; Stop 08/16/16 at 00:29; Status DC Amlodipine Besylate (Norvasc) 5 mg BID PO Last administered on 08/17/16 09:38; Start 08/16/16 at 21:00 Furosemide (Lasix) 40 mg DAILY PO Last administered on 08/17/16 09:18; Start at 09:00 Amiodarone HCl (Cordarone) 200 mg DAILY PO Last administered on 08/17/16 09:38 ; Start 08/16/16 at 15:00 Spironolactone (Aldactone) 25 mg DAILY PO Last administered on 08/17/16 09:18; Start 08/16/16 at 15:00 Isosorbide Mononitrate (Imdur) 30 mg QHS PO Last administered on 08/16/16 20:50 ; Start 08/16/16 at 21:00 Morphine Sulfate 2 mg PRN Q4HRS PRN IV SEVERE PAIN; Start 08/17/16 at 04:15 Acetaminophen/ Hydrocodone Bitart (Lortab 5/325) 1 tab PRN Q6HRS PRN PO MODERATE PAIN Last administered on 08/17/16 04:13; Start 08/17/16 at 04:15 Ondansetron HCl (Zofran) 4 mg PRN Q6HRS PRN IV NAUSEA/VOMITING; Start 08/17/16 at 04:15 Metoprolol Tartrate (Lopressor) 12.5 mg BID PO Last administered on 08/17/16 09 :38; Start 08/17/16 at 09:30 Hydralazine HCl (Apresoline) 50 mg TID PO ; Start 08/17/16 at 14:00 Active Scripts Active Metoprolol Tartrate 25 Mg Tablet 25 Mg PO BID Norvasc (Amlodipine Besylate) 10 Mg Tablet 10 Mg PO DAILY Ventolin Hfa Inhaler (Albuterol Sulfate) 18 Gm Hfa.aer.ad 2 Puff IH PRN Q4-6HRS Klor-Con M20 (Potassium Chloride) 20 Meq Tablet.er 20 Meq PO DAILYWBKFT Prinivil (Lisinopril) 20 Mg Tablet 40 Mg PO DAILY Lasix (Furosemide) 40 Mg Tablet 40 Mg PO DAILY Children's Aspirin (Aspirin) 81 Mg Tab.chew 81 Mg PO DAILYWBKFT Lipitor (Atorvastatin Calcium) 20 Mg Tablet 20 Mg PO QHS Vitals/I & O Vital Sign - Last 24 Hours 08/16/16 08/16/16 08/16/16 08/16/16 16:00 18:38 19:15 19:40 Temp 98.0 98.0 98.0 98.0 Pulse 62 73 64 Resp 14 20 B/P 153/99 170/82 167/85 Pulse Ox 99 94 O2 Delivery Room Air Room Air Room Air 08/16/16 08/16/16 08/16/16 08/16/16 20:50 20:50 20:50 23:04 Temp 97.5 97.5 Pulse 64 64 64 61 Resp 22 B/P 167/85 167/85 167/85 168/63 Pulse Ox 100 O2 Delivery Room Air 08/17/16 08/17/16 08/17/16 08/17/16 03:28 04:13 05:13 07:44 Temp 98.3 98.3 Pulse 59 Resp 18 20 20 B/P 144/67 Pulse Ox 93 O2 Delivery Room Air Room Air Room Air Room Air 08/17/16 08/17/16 08/17/16 08/17/16 07:59 09:00 09:37 09:38 Pulse 44 50 61 57 Resp 20 B/P 160/94 166/106 166/106 166/106 Pulse Ox 100 O2 Delivery Room Air 08/17/16 08/17/16 09:38 09:38 Pulse 59 58 B/P 166/106 166/106 Intake and Output 08/16/16 08/16/16 08/17/16 15:00 23:00 07:00 Intake Total 300 ml 300 ml 1200 ml Output Total 1100 ml 1300 ml 400 ml Balance -800 ml -1000 ml 800 ml JASPER JONES MD Aug 17, 2016 12:40
[2016-08-17 13:29] LABS: CREATININE 1.2 mg/dL (0.6-1.0); GFR 58.5; MAGNESIUM 1.9 mg/dL (1.8-2.4); POTASSIUM 4.5 mmol/L (3.5-5.1)
[2016-08-17] MEDS ORDERED: HYDRALAZINE 50 MG TABLET PO SCH (14:00)
[2016-08-17 14:27] VITALS: BP 156/100
[2016-08-17] MEDS ORDERED: AMIO200T2 PO (15:58)
[2016-08-17] MEDS ORDERED: FURO40TA4 PO (15:58)
[2016-08-17] MEDS ORDERED: HYDR-2869 PO (15:58)
[2016-08-17] MEDS ORDERED: SPIR25TA PO (15:58)
[2016-08-17] MEDS ORDERED: LOSA50TA2 PO (15:58)
[2016-08-17] MEDS ORDERED: ISOS30TA4 PO (15:58)
--- NOTE | 2016-08-18 08:22 | RAD ---
Bilateral renal sonography Clinical indications: Hypertension. Findings: The longitudinal AP and transverse dimensions of the right kidney are 8.7 cm and 3.4 cm and 4.0 cm respectively. The longitudinal and AP and transverse dimensions of the left kidney are 9.0 cm and 4.4 cm and 4.4 cm respectively. No hydronephrosis or renal mass or perinephric fluid collection is seen on either side. Urinary bladder is mildly distended. IMPRESSION: No hydronephrosis.
== END 2016-08-17 18:19 | disposition home or self-care (01) | DRG 291 ==
LOC: ER 09:49 → ED HOLD 11:30 → 1 WEST ICU 14:01
PROVIDERS: ADMIT Internal Medicine; ATTEND Internal Medicine
DX: I13.0 Hypertensive heart and chronic kidney disease with heart failure and stage 1 through stage 4 chronic kidney disease, or unspecified chronic kidney disease (principal); I50.43 Acute on chronic combined systolic (congestive) and diastolic (congestive) heart failure; J44.1 Chronic obstructive pulmonary disease with (acute) exacerbation; Z68.42 Body mass index [BMI] 45.0-49.9, adult; I47.2 Ventricular tachycardia; I42.9 Cardiomyopathy, unspecified; E11.22 Type 2 diabetes mellitus with diabetic chronic kidney disease; E78.00 Pure hypercholesterolemia, unspecified; E78.5 Hyperlipidemia, unspecified; E83.42 Hypomagnesemia; F12.90 Cannabis use, unspecified, uncomplicated; M19.90 Unspecified osteoarthritis, unspecified site; E66.9 Obesity, unspecified; I49.3 Ventricular premature depolarization; N18.3 Chronic kidney disease, stage 3 (moderate); Z72.0 Tobacco use; Z86.32 Personal history of gestational diabetes; Z90.710 Acquired absence of both cervix and uterus; Z91.19 Patient's noncompliance with other medical treatment and regimen; Z95.810 Presence of automatic (implantable) cardiac defibrillator; Z79.82 Long term (current) use of aspirin
CPT/HCPCS: 36415; 71010; 71250; 76770; 80048; 80061; 80076; 83735; 83880; 84132; 84443; 84484; 85027; 87641; 93005; 93306; 94250; 94640; G0481; J0360; J1940; J7060; 99285-25

== ENCOUNTER 2017-01-17 11:26 | Inpatient (IN) | payer SELFPAY ==
[~2017-01-17] VITALS: Ht 162.6 cm; Wt 99.8 kg
[~2017-01-17 11:26] MED LIST changes: +AMIO200T2 PO; +FURO40TA4 PO; +HYDR-2869 PO; +ISOS30TA4 PO; +LOSA50TA2 PO; +SPIR25TA PO
[2017-01-17 12:18] LABS: BASO % 0 % (0-3); EOS % 1 % (0-3); HEMATOCRIT 32.9 % (36.0-47.0); HEMOGLOBIN 11.2 g/dL (12.0-15.5); LYMPH % 35 % (24-48); MEAN CORPUSCULAR HEMOGLOBIN 31 pg (25-35); MEAN CORPUSCULAR HGB CONC 34 g/dL (31-37); MEAN CORPUSCULAR VOLUME 91 fL (79-100); MONO % 8 % (0-9); NEUT % 56 % (31-73); PLATELET COUNT 170 x10^3/uL (140-400); RED BLOOD COUNT 3.61 x10^6/uL (3.50-5.40); RED CELL DISTRIBUTION WIDTH 14.3 % (11.5-14.5); WHITE BLOOD COUNT 5.7 x10^3/uL (4.0-11.0)
--- NOTE | 2017-01-17 12:54 | PDOC2 ---
AMAN BARRON TOLL COLLECTOR 01/17/17 1254: CARDIAC CONSULT DATE OF CONSULT Date of Consult DATE: 01/17/17 TIME: 12:48 REASON FOR CONSULT Reason for Consult: palpitations REFERRING PHYSICIAN Referring Physician: Gino SOURCE Source: Chart review, Patient HISTORY OF PRESENT ILLNESS HISTORY OF PRESENT ILLNESS This is a pleasant 46 yo female admitted for complains of SOA and wheeze. Reports that she still has lisinopril, metoprolol, ASA, and lipitor. The rest of her medications including lasix and amiodarone she ran out about 2-3 weeks ago. She was trying to wait it out for her medical help to come in and was able to fill her prescription yesterday but unable to pick it up. Reports that in the last 3 days she has been feeling more SOA more with exertion, Also with PND and mid chest tightness as well. No significant swelling but has been feeling bloated. also was having intermittent palpitations but no nausea or vomiting or diaphoresis. No dizziness or sensation of passing out. Verbalized that she has been urinating more then decreased. She checked her BP at home and SBP was 199. No recent infections/fever or any antibiotic treatments. PAST MEDICAL HISTORY Past Medical History Cardiovascular: CHF (NICM), HTN, Hyperlipidemia, Valve insufficiency Pulmonary: COPD (?) CENTRAL NERVOUS SYSTEM: Other (no pertinent history) GI: No pertinent hx Heme/Onc: No pertinent hx Hepatobiliary: No pertinent hx Psych: No pertinent hx Musculoskeletal: Osteoarthritis Rheumatologic: No pertinent hx Infectious disease: No pertinent hx ENT: No pertinent hx Renal/: No pertinent hx Endocrine: Diabetes (gestational) Dermatology: No pertinent hx PAST SURGICAL HISTORY Past Surgical History: Hysterectomy FAMILY HISTORY Family History noncontributory SOCIAL HISTORY Social History Smoke: Quit 05/2016 24 pk yr ALCOHOL: none Drugs: None Lives: with Family ALLERGIES ALLERGIES: Coded Allergies: No Known Drug Allergies (Unverified , 08/01/14) ROS Review of System 14 point ROS evaluated with pertinent positives noted per HPI PHYSICAL EXAM General: Alert, Oriented X3, Cooperative, No acute distress HEENT: Atraumatic, Mucous membr. moist/pink Lungs: Other (diminished bases) Heart: Normal S1, Normal S2, Other (S4; systolic murmur to apical 3/6; SR with PVCs) Abdomen: Soft, No tenderness, Other (obese) Extremities: No cyanosis, Other (2+ bilateral LE pitting edema) Skin: No breakdown, No significant lesion Neuro: Normal speech, Sensation intact Psych/Mental Status: Mental status NL, Mood NL MUSCULOSKELETAL: Osteoarthritic changes both hands VITALS VITALS Vital Signs Date Time Temp Pulse Resp B/P (MAP) Pulse Ox O2 Delivery O2 Flow Rate FiO2 01/17/17 11:30 97.9 64 18 164/97 (119) 98 Room Air 97.9 LABS Lab: Laboratory Tests Test 01/17/17 11:40 White Blood Count 5.7 x10^3/uL (4.0-11.0) Red Blood Count 3.61 x10^6/uL (3.50-5.40) Hemoglobin 11.2 g/dL (12.0-15.5) Hematocrit 32.9 % (36.0-47.0) Mean Corpuscular Volume 91 fL (79-100) Mean Corpuscular Hemoglobin 31 pg (25-35) Mean Corpuscular Hemoglobin Concent 34 g/dL (31-37) Red Cell Distribution Width 14.3 % (11.5-14.5) Platelet Count 170 x10^3/uL (140-400) Neutrophils (%) (Auto) 56 % (31-73) Lymphocytes (%) (Auto) 35 % (24-48) Monocytes (%) (Auto) 8 % (0-9) Eosinophils (%) (Auto) 1 % (0-3) Basophils (%) (Auto) 0 % (0-3) Neutrophils # (Auto) 3.2 x10^3uL (1.8-7.7) Lymphocytes # (Auto) 2.0 x10^3/uL (1.0-4.8) Monocytes # (Auto) 0.4 x10^3/uL (0.0-1.1) Eosinophils # (Auto) 0.1 x10^3/uL (0.0-0.7) Basophils # (Auto) 0.0 x10^3/uL (0.0-0.2) ECHOCARDIOGRAM ECHOCARDIOGRAM <Conclusion> There is severe LV systolic dysfunction. EF 25% There is moderate to severe global hypokinesis. Doppler and Color-flow revealed mild to moderate mitral regurgitation. Doppler and Color Flow revealed moderate tricuspid regurgitation. There is severe pulmonary hypertension. The PA pressure was estimated at 74 mmHg. The IVC is dilated and collapses <50% with inspiration consistent with fluid overload. DATE: 08/16/16 0936 HEART CATH HEART CATH Conclusion 1. Mildly elevated left ventricular filling pressures. 2. Mild to moderate LV dysfunction. EF 40% 3. Normal angiographic appearance of the coronary arteries. 4. Successful angioseal closure of the RCFA. 5. Frequent PVC's. Recommendations Aggressive Medical Therapy DATE: 05/04/15 1049 ASSESSMENT/PLAN ASSESSMENT/PLAN 1. Palpitations: intermittent, likely from frequent PVCs. 2. Acute on chronic combined diastolic/systolic CHF: NYHA 2. 2-3 weeks off several cardiac meds due to financial constraints. 3. 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 4. NICM: notable for frequent PVCs 5. Accelerated HTN: noted with home SBP at 199 6. CKD3 7. Noncompliance: verbalized approved medical help. 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 Recommendations 1. Restart lasix. Continue with metoprolol. Unable to titrate up due to prior hx of bradycardia. Will restart amiodarone. Replace K and Mg as warranted 2. TTE today and will note any improvement. Last EF of 25%. Unable to afford lifevest on previous admission 3. SS and CM follow up 4. Restart home cardiac regimen 6. Reinforced compliance to treatment plans. 7. Continue with secondary prevention measures. 8. Tailor made routine meds to 4$ [facility] Rx. 9. CMP, lipid panel. Problems: HERIBERTO ZAMORANO MD 01/17/17 1806: CARDIAC CONSULT ALLERGIES ALLERGIES: Coded Allergies: No Known Drug Allergies (Unverified , 08/01/14) ASSESSMENT/PLAN ASSESSMENT/PLAN Patient seen and examined Acute on chronic systolic heart failure. Has not taken medication for several weeks as above. We'll restart diuresis and baseline meds. Monitoring electrolytes. Repeat echocardiogram. History of recurrent severe cardiomyopathy with ejection fraction of 25%. Medications as above. Repeat echocardiogram. Hypertension. Monitor pressure once medications restarted. Pulmonary hypertension. Restart medications. Echocardiogram. Chronic kidney disease. States 3. Monitoring lab. Discussed noncompliance with the patient. Thank you for allowing us to participate in the care of your patient. Problems: AMAN BARRON TOLL COLLECTOR Jan 17, 2017 12:54 HERIBERTO ZAMORANO MD Jan 17, 2017 18:06
--- NOTE | 2017-01-17 13:15 | RAD ---
Portable chest, 01/17/2017: History: Chest pain Comparison is made to a study from 08/15/2016. The heart is enlarged. The pulmonary vascularity is within normal limits. No pulmonary infiltrates are seen. There is no evidence of pleural fluid. IMPRESSION: 1. Cardiomegaly. 2. No acute abnormality is detected.
[2017-01-17 13:16] LABS: ALBUMIN 3.1 g/dL (3.4-5.0); ALBUMIN/GLOBULIN RATIO 0.9 (1.0-1.7); CALCIUM 8.2 mg/dL (8.5-10.1); CREATININE 1.2 mg/dL (0.6-1.0); GFR 58.5; POTASSIUM 4.3 mmol/L (3.5-5.1); TOTAL BILIRUBIN 0.2 mg/dL (0.2-1.0); TOTAL PROTEIN 6.7 g/dL (6.4-8.2)
[2017-01-17 13:18] LABS: CHOLESTEROL/HDL RATIO 3.1; MAGNESIUM 1.6 mg/dL (1.8-2.4)
[2017-01-17] MEDS ORDERED: FUROSEMIDE 40 MG/4 ML VIAL. IVP ONE (13:30)
[2017-01-17] MEDS: FUROSEMIDE 40 MG TABLET. PO SCH (14:00)
--- NOTE | 2017-01-17 14:44 | ED.ADGEN ---
Past Medical History Past Medical History: CHF, High Cholesterol, Hypertension, Other Additional Past Medical Histor: BRADYCARDIA Past Surgical History: Hysterectomy Additional Past Surgical Histo: FIBROIDS REMOVED Alcohol Use: Occasionally Drug Use: None Adult General Chief Complaint Chief Complaint: SHORTNESS OF BREATH HPI HPI Patient is a 46 year old female with history of cardiomyopathy and cardiac arrhythmia who presents with dyspnea for the past several days. Symptoms been progressive occurred when supine and with exertion. Patient denies chest pain, chest tightness, increased leg pain and swelling. History of congestive heart failure. Patient denies fever, chills, nausea vomiting and sweats. 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 Woodward Review of Systems Review of Systems ROS as per HPI. Current Medications Current Medications Current Medications Medications (Trade) Dose Ordered Sig/Shaheed Start Time Stop Time Status Last Admin Dose Admin Amiodarone HCl (Cordarone) 200 mg DAILY 01/17/17 14:00 Aspirin (Children'S Aspirin) 81 mg DAILYWBKFT 01/17/17 14:00 Atorvastatin Calcium (Lipitor) 20 mg QHS 01/17/17 21:00 Furosemide (Lasix) 40 mg 1X ONCE 01/17/17 13:30 01/17/17 13:37 DC Hydralazine HCl (Apresoline) 50 mg TID 01/17/17 14:00 Isosorbide Mononitrate (Imdur) 30 mg QHS 01/17/17 21:00 Losartan Potassium (Cozaar) 50 mg DAILY 01/17/17 14:00 Metoprolol Tartrate (Lopressor) 25 mg BID 01/17/17 21:00 Spironolactone (Aldactone) 25 mg DAILY 01/17/17 15:00 Allergies Allergies Allergies Coded Allergies Type Severity Reaction Last Updated Verified No Known Drug Allergies 08/01/14 No Physical Exam Physical Exam Constitutional: Well developed, well nourished, no acute distress, non-toxic appearance. HENT: Normocephalic, atraumatic, bilateral external ears normal, oropharynx moist, no oral exudates, nose normal. Eyes: PERRLA, EOMI, conjunctiva normal, no discharge. Neck: Normal range of motion, no tenderness, supple, no stridor. Cardiovascular:Heart rate regular rhythm, no murmur. Lungs & Thorax: Bilateral breath sounds clear to auscultation. Abdomen: Bowel sounds normal, soft, no tenderness, no masses, no pulsatile masses. Skin: Warm, dry, no erythema, no rash. Back: No tenderness, no CVA tenderness. Extremities: No tenderness, no cyanosis. Neurologic: Alert and oriented X 3, normal motor function, normal sensory function, no focal deficits noted. Psychologic: Affect normal, judgement normal, mood normal. Current Patient Data Vital Signs Vital Signs Date Time Temp Pulse Resp B/P (MAP) Pulse Ox O2 Delivery O2 Flow Rate FiO2 01/17/17 11:30 97.9 64 18 164/97 (119) 98 Room Air 97.9 Lab Values Laboratory Tests Test 01/17/17 11:40 01/17/17 12:45 White Blood Count 5.7 x10^3/uL (4.0-11.0) Red Blood Count 3.61 x10^6/uL (3.50-5.40) Hemoglobin 11.2 g/dL (12.0-15.5) L Hematocrit 32.9 % (36.0-47.0) L Mean Corpuscular Volume 91 fL (79-100) Mean Corpuscular Hemoglobin 31 pg (25-35) Mean Corpuscular Hemoglobin Concent 34 g/dL (31-37) Red Cell Distribution Width 14.3 % (11.5-14.5) Platelet Count 170 x10^3/uL (140-400) Neutrophils (%) (Auto) 56 % (31-73) Lymphocytes (%) (Auto) 35 % (24-48) Monocytes (%) (Auto) 8 % (0-9) Eosinophils (%) (Auto) 1 % (0-3) Basophils (%) (Auto) 0 % (0-3) Neutrophils # (Auto) 3.2 x10^3uL (1.8-7.7) Lymphocytes # (Auto) 2.0 x10^3/uL (1.0-4.8) Monocytes # (Auto) 0.4 x10^3/uL (0.0-1.1) Eosinophils # (Auto) 0.1 x10^3/uL (0.0-0.7) Basophils # (Auto) 0.0 x10^3/uL (0.0-0.2) Thyroid Stimulating Hormone (TSH) 1.420 uIU/mL (0.358-3.74) Sodium Level 144 mmol/L (136-145) Potassium Level 4.3 mmol/L (3.5-5.1) Chloride Level 110 mmol/L (98-107) H Carbon Dioxide Level 28 mmol/L (21-32) Anion Gap 6 (6-14) Blood Urea Nitrogen 16 mg/dL (7-20) Creatinine 1.2 mg/dL (0.6-1.0) H Estimated GFR (Cockcroft-Gault) 58.5 BUN/Creatinine Ratio 13 (6-20) Glucose Level 90 mg/dL (70-99) Calcium Level 8.2 mg/dL (8.5-10.1) L Magnesium Level 1.6 mg/dL (1.8-2.4) L Total Bilirubin 0.2 mg/dL (0.2-1.0) Aspartate Amino Transferase (AST) 16 U/L (15-37) Alanine Aminotransferase (ALT) 14 U/L (14-59) Alkaline Phosphatase 71 U/L (46-116) Troponin I Quantitative 0.025 ng/mL (0.000-0.055) AG-Jxw-C-Type Natriuretic Peptide 8593 pg/mL (0-124) H Total Protein 6.7 g/dL (6.4-8.2) Albumin 3.1 g/dL (3.4-5.0) L Albumin/Globulin Ratio 0.9 (1.0-1.7) L Triglycerides Level 57 mg/dL (0-150) Cholesterol Level 163 mg/dL (0-200) LDL Cholesterol, Calculated 100 mg/dL (0-100) VLDL Cholesterol, Calculated 11 mg/dL (0-40) Non-HDL Cholesterol Calculated 111 mg/dL (0-129) HDL Cholesterol 52 mg/dL (40-60) Cholesterol/HDL Ratio 3.1 Laboratory Tests 01/17/17 11:40 Laboratory Tests 01/17/17 12:45 EKG EKG [EKG: Sinus rhythm, rate 69, frequent PVCs, QTC 4:15.] Radiology/Procedures Radiology/Procedures [Chest x-ray: No acute cardiopulmonary disease or radiology report.] Course & Med Decision Making Course & Med Decision Making Pertinent Labs and Imaging studies reviewed. (See chart for details) [Cardiology consult. IV Lasix given. Dr. Haddad to admit. ] Dragon Disclaimer Dragon Disclaimer This electronic medical record was generated, in whole or in part, using a voice recognition dictation system. ASHA VOSS DO Jan 17, 2017 14:44
[2017-01-17] MEDS ORDERED: ONDANSETRON PF 4 MG/2 ML VIAL. IV PRN (14:45)
--- NOTE | 2017-01-17 15:24 | ACF ---
Admit Criteria Forms Admit Criteria Forms Admit Criteria Forms HEART FAILURE: COMMON COMPLICATIONS (Place 'X' for any and all applicable criteria): Ongoing inpatient care may be indicated for heart failure with 1 or more of the following (1)(2)(3)(4)(5)(6)(7)(8): [ ]I. New-onset heart failure [ ]II. Acute cardiac ischemia causing or associated with failure [ ]III. Ongoing need for care for primary condition requiring frequent therapy adjustments because of changes in cardiac function (eg, drug dosage changes for drugs that are renally metabolized) [X]IV. Complications of heart failure, including 1 or more of the following: [ ]a) Hemodynamic instability [ ]b) Pericardial effusion [ ]c) Symptomatic pleural effusion [ ]d) Hypoxemia [ ]e) Tachypnea [X]f) Dyspnea [ ]g) Syncope [ ]h) Altered mental status [ ]i) Acute renal insufficiency that is severe (reduction of more than 50% in estimated glomerular filtration rate from baseline) or progressive reduction of more than 25% in estimated glomerular filtration rate from baseline, with creatinine continuing to rise) [ ]j) Debilitating anasarca (eg tissue breakdown with infection, inability to void due to edema) (E) [ ]k) Clinically significant metabolic abnormalities due to heart failure (eg, new-onset metabolic acidosis) Extended stay may be needed until ALL of the following are present (1)(3)(18)(41 )(55) [ ]a) Hemodynamic stability [ ]b) Stable and effective diuretic regimen established (or patient on stable dialysis regimen if in chronic renal failure) [ ]c) Volume status acceptable on oral medication [ ]d) Breathing comfortably at rest [ ]e) Saturation of arterial oxygen greater than 90% or at acceptable baseline [ ]f) Pulmonary edema absent or improved [ ]g) Peripheral or sacral edema absent or improved [ ]h) Renal function stable and manageable at a lower level of care [ ]i) Complications (eg, pleural effusion) resolved or manageable at a lower level of care [ ]g) Patient or caregiver has received written discharge instructions or educational material addressing activity level, diet, discharge medications, follow-up appointment, weight monitoring, and what to do if symptoms worsen.(25)(26) The original [employer] content created by [facility] has been revised. The portions of the content which have been revised are identified through the use of italic text, and [facility] has neither reviewed nor approved the modified material.All other unmodified content is copyright [facility]. Please see references footnoted in the original [facility] edition 2014 HANY RM Jan 17, 2017 15:24
[2017-01-17 16:30] VITALS: BP 159/90
[2017-01-17] MEDS ORDERED: MAGNESIUM SULFATE 2GM 50 ML IV ONE (16:30)
--- NOTE | 2017-01-17 16:46 | PDOC1 ---
History and Physical Date of Admission Date of Admission DATE: 01/17/17 TIME: 16:39 History of Present Illness History of Present Illness Ms. Benitez is a 46 year old admit from ER for acute dyspnea with chest pain, pressure at rest, unable to tolerate much exertion due to dyspnea. She has a history of cardiomyopathy and cardiac arrhythmia , was last here in October Symptoms been progressive occurred when supine and with exertion. Patient denies chest pain, chest tightness, increased leg pain and swelling. History of congestive heart failure. 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 Alexander Past Medical History Cardiovascular: CHF, HTN, Hyperlipidemia, Valve insufficiency Pulmonary: COPD CENTRAL NERVOUS SYSTEM: Other GI: No pertinent hx Heme/Onc: No pertinent hx Hepatobiliary: No pertinent hx Psych: No pertinent hx Musculoskeletal: Osteoarthritis Rheumatologic: No pertinent hx Infectious disease: No pertinent hx Renal/: No pertinent hx Endocrine: Diabetes Past Surgical History Past Surgical History: Hysterectomy Family History Family History: No Significant Social History Smoke: No ALCOHOL: none Drugs: Marijuana Current Problem List Problem List Problems Medical Problems: (1) CHF (congestive heart failure) Status: Acute Problems: Current Medications Current Medications Current Medications Amiodarone HCl (Cordarone) 200 mg DAILY PO ; Start 01/17/17 at 14:00 Aspirin (Children'S Aspirin) 81 mg DAILYWBKFT PO ; Start 01/17/17 at 14:00 Atorvastatin Calcium (Lipitor) 20 mg QHS PO ; Start 01/17/17 at 21:00 Furosemide (Lasix) 40 mg DAILY PO ; Start 01/17/17 at 14:00 Hydralazine HCl (Apresoline) 50 mg TID PO ; Start 01/17/17 at 14:00 Isosorbide Mononitrate (Imdur) 30 mg QHS PO ; Start 01/17/17 at 21:00 Spironolactone (Aldactone) 25 mg DAILY PO ; Start 01/17/17 at 15:00 Metoprolol Tartrate (Lopressor) 25 mg BID PO ; Start 01/17/17 at 21:00 Losartan Potassium (Cozaar) 50 mg DAILY PO ; Start 01/17/17 at 14:00 Furosemide (Lasix) 40 mg 1X ONCE IVP ; Start 01/17/17 at 13:30; Stop 01/17/17 at 13:37; Status DC Ondansetron HCl (Zofran) 4 mg PRN Q8HRS PRN IV NAUSEA/VOMITING; Start 01/17/17 at 14:45; Stop 01/18/17 at 14:44 Magnesium Sulfate/ Dextrose 50 ml @ 25 mls/hr 1X ONCE IV ; Start 01/17/17 at 16 :30; Stop 01/17/17 at 18:29 Active Scripts Active Amiodarone Hcl 200 Mg Tablet 200 Mg PO DAILY Cozaar (Losartan Potassium) 50 Mg Tablet 100 Mg PO DAILY Isosorbide Mononitrate Er (Isosorbide Mononitrate) 30 Mg Tab.er.24h 30 Mg PO QHS Furosemide 40 Mg Tablet 40 Mg PO DAILY Aldactone (Spironolactone) 25 Mg Tablet 25 Mg PO DAILY Hydralazine Hcl 50 Mg Tablet 50 Mg PO TID Norvasc (Amlodipine Besylate) 10 Mg Tablet 10 Mg PO DAILY Ventolin Hfa Inhaler (Albuterol Sulfate) 18 Gm Hfa.aer.ad 2 Puff IH PRN Q4-6HRS Klor-Con M20 (Potassium Chloride) 20 Meq Tablet.er 20 Meq PO DAILYWBKFT Prinivil (Lisinopril) 20 Mg Tablet 40 Mg PO DAILY Lasix (Furosemide) 40 Mg Tablet 40 Mg PO DAILY Children's Aspirin (Aspirin) 81 Mg Tab.chew 81 Mg PO DAILYWBKFT Lipitor (Atorvastatin Calcium) 20 Mg Tablet 20 Mg PO QHS Allergies Allergies: Coded Allergies: No Known Drug Allergies (Unverified , 08/01/14) ROS Review of System Patient denies fever, chills, nausea vomiting and sweats. General: YES: Fatigue, No: Chills, Night Sweats, Malaise, Appetite, Other PSYCHOLOGICAL ROS: No: Anxiety, Behavioral Disorder, Concentration difficultie , Decreased libido, Depression, Disorientation, Hallucinations, Hostility, Irritablity, Memory difficulties, Mood Swings, Obsessive thoughts, Physical abuse, Sexual abuse, Sleep disturbances, Suicidal ideation, Other Eyes: No Blurry vision, No Decreased vision, No Double vision, No Dry eyes, No Excessive tearing, No Eye Pain, No Itchy Eyes, No Loss of vision, No Photophobia , No Scotomata, No Uses contacts, No Uses glasses, No Other HEENT: YES: Heacaches, No: Visual Changes, Hearing change, Nasal congestion, Nasal discharge, Oral lesions, Sinus pain, Sore Throat, Epistaxis, Sneezing, Snoring, Tinnitus, Vertigo, Vocal changes, Other Physical Exam General: Alert, Cooperative, mild distress HEENT: Atraumatic, PERRLA Lungs: Clear to auscultation Heart: S1S2, RRR Rectal Exam: deferred Extremities: No edema Skin: No significant lesion Neuro: Normal tone, Sensation intact Psych/Mental Status: Mood NL Vitals Vitals Vital Signs Date Time Temp Pulse Resp B/P (MAP) Pulse Ox O2 Delivery O2 Flow Rate FiO2 01/17/17 15:30 44 18 124/69 (87) 98 Room Air 01/17/17 11:30 97.9 97.9 Labs Labs Laboratory Tests Test 01/17/17 11:40 01/17/17 12:45 White Blood Count 5.7 x10^3/uL (4.0-11.0) Red Blood Count 3.61 x10^6/uL (3.50-5.40) Hemoglobin 11.2 g/dL (12.0-15.5) Hematocrit 32.9 % (36.0-47.0) Mean Corpuscular Volume 91 fL (79-100) Mean Corpuscular Hemoglobin 31 pg (25-35) Mean Corpuscular Hemoglobin Concent 34 g/dL (31-37) Red Cell Distribution Width 14.3 % (11.5-14.5) Platelet Count 170 x10^3/uL (140-400) Neutrophils (%) (Auto) 56 % (31-73) Lymphocytes (%) (Auto) 35 % (24-48) Monocytes (%) (Auto) 8 % (0-9) Eosinophils (%) (Auto) 1 % (0-3) Basophils (%) (Auto) 0 % (0-3) Neutrophils # (Auto) 3.2 x10^3uL (1.8-7.7) Lymphocytes # (Auto) 2.0 x10^3/uL (1.0-4.8) Monocytes # (Auto) 0.4 x10^3/uL (0.0-1.1) Eosinophils # (Auto) 0.1 x10^3/uL (0.0-0.7) Basophils # (Auto) 0.0 x10^3/uL (0.0-0.2) Thyroid Stimulating Hormone (TSH) 1.420 uIU/mL (0.358-3.74) Sodium Level 144 mmol/L (136-145) Potassium Level 4.3 mmol/L (3.5-5.1) Chloride Level 110 mmol/L (98-107) Carbon Dioxide Level 28 mmol/L (21-32) Anion Gap 6 (6-14) Blood Urea Nitrogen 16 mg/dL (7-20) Creatinine 1.2 mg/dL (0.6-1.0) Estimated GFR (Cockcroft-Gault) 58.5 BUN/Creatinine Ratio 13 (6-20) Glucose Level 90 mg/dL (70-99) Calcium Level 8.2 mg/dL (8.5-10.1) Magnesium Level 1.6 mg/dL (1.8-2.4) Total Bilirubin 0.2 mg/dL (0.2-1.0) Aspartate Amino Transf (AST/SGOT) 16 U/L (15-37) Alanine Aminotransferase (ALT/SGPT) 14 U/L (14-59) Alkaline Phosphatase 71 U/L (46-116) Troponin I Quantitative 0.025 ng/mL (0.000-0.055) AF-Dik-N-Type Natriuretic Peptide 8593 pg/mL (0-124) Total Protein 6.7 g/dL (6.4-8.2) Albumin 3.1 g/dL (3.4-5.0) Albumin/Globulin Ratio 0.9 (1.0-1.7) Triglycerides Level 57 mg/dL (0-150) Cholesterol Level 163 mg/dL (0-200) LDL Cholesterol, Calculated 100 mg/dL (0-100) VLDL Cholesterol, Calculated 11 mg/dL (0-40) Non-HDL Cholesterol Calculated 111 mg/dL (0-129) HDL Cholesterol 52 mg/dL (40-60) Cholesterol/HDL Ratio 3.1 Laboratory Tests Test 01/17/17 11:40 01/17/17 12:45 White Blood Count 5.7 x10^3/uL (4.0-11.0) Red Blood Count 3.61 x10^6/uL (3.50-5.40) Hemoglobin 11.2 g/dL (12.0-15.5) Hematocrit 32.9 % (36.0-47.0) Mean Corpuscular Volume 91 fL (79-100) Mean Corpuscular Hemoglobin 31 pg (25-35) Mean Corpuscular Hemoglobin Concent 34 g/dL (31-37) Red Cell Distribution Width 14.3 % (11.5-14.5) Platelet Count 170 x10^3/uL (140-400) Neutrophils (%) (Auto) 56 % (31-73) Lymphocytes (%) (Auto) 35 % (24-48) Monocytes (%) (Auto) 8 % (0-9) Eosinophils (%) (Auto) 1 % (0-3) Basophils (%) (Auto) 0 % (0-3) Neutrophils # (Auto) 3.2 x10^3uL (1.8-7.7) Lymphocytes # (Auto) 2.0 x10^3/uL (1.0-4.8) Monocytes # (Auto) 0.4 x10^3/uL (0.0-1.1) Eosinophils # (Auto) 0.1 x10^3/uL (0.0-0.7) Basophils # (Auto) 0.0 x10^3/uL (0.0-0.2) Thyroid Stimulating Hormone (TSH) 1.420 uIU/mL (0.358-3.74) Sodium Level 144 mmol/L (136-145) Potassium Level 4.3 mmol/L (3.5-5.1) Chloride Level 110 mmol/L (98-107) Carbon Dioxide Level 28 mmol/L (21-32) Anion Gap 6 (6-14) Blood Urea Nitrogen 16 mg/dL (7-20) Creatinine 1.2 mg/dL (0.6-1.0) Estimated GFR (Cockcroft-Gault) 58.5 BUN/Creatinine Ratio 13 (6-20) Glucose Level 90 mg/dL (70-99) Calcium Level 8.2 mg/dL (8.5-10.1) Magnesium Level 1.6 mg/dL (1.8-2.4) Total Bilirubin 0.2 mg/dL (0.2-1.0) Aspartate Amino Transf (AST/SGOT) 16 U/L (15-37) Alanine Aminotransferase (ALT/SGPT) 14 U/L (14-59) Alkaline Phosphatase 71 U/L (46-116) Troponin I Quantitative 0.025 ng/mL (0.000-0.055) GX-Paj-V-Type Natriuretic Peptide 8593 pg/mL (0-124) Total Protein 6.7 g/dL (6.4-8.2) Albumin 3.1 g/dL (3.4-5.0) Albumin/Globulin Ratio 0.9 (1.0-1.7) Triglycerides Level 57 mg/dL (0-150) Cholesterol Level 163 mg/dL (0-200) LDL Cholesterol, Calculated 100 mg/dL (0-100) VLDL Cholesterol, Calculated 11 mg/dL (0-40) Non-HDL Cholesterol Calculated 111 mg/dL (0-129) HDL Cholesterol 52 mg/dL (40-60) Cholesterol/HDL Ratio 3.1 VTE Prophylaxis Ordered VTE Prophylaxis Devices: Yes VTE Pharmacological Prophylaxi: Yes Assessment/Plan Assessment/Plan chest pain, dyspnea, CHF, acute on chronic systolic morbid obesity ,BMI 45 JANETH TORREZ MD Jan 17, 2017 16:46
[2017-01-17] MEDS: ASPIRIN CHEWABLE 81 MG TABLET. PO SCH (16:59)
[2017-01-17] MEDS: SPIRONOLACTONE 25 MG TABLET PO SCH (16:59)
[2017-01-17] MEDS: BUTALB/APAP/CAFEIN 50/325/40MG TABLET. PO PRN (16:59)
[2017-01-17] MEDS: AMIODARONE HCL 200 MG TABLET. PO SCH (17:00)
[2017-01-17] MEDS: LOSARTAN POTASSIUM 50 MG TABLET. PO SCH (17:01)
--- NOTE | 2017-01-17 17:19 | CARD ---
APPROVED REPORT EXAM: Two-dimensional and M-mode echocardiogram with Doppler and color Doppler. Other Information Quality : GoodHR: 75bpm Rhythm : Irregular INDICATION Non-ischemic cardiomyopathy RISK FACTORS Obesity 2D DIMENSIONS RVDd3.2 (2.9-3.5cm)IVSd1.2 (0.7-1.1cm) Aortic Root(2D)2.9 (2.0-3.7cm)LVDd4.8 (3.9-5.9cm) PWd1.2 (0.7-1.1cm)LVDs4.4 (2.5-4.0cm) FS (%) 8.6 %SV20.8 ml Tricuspid Valve TR P. [id number] Peak Gr.26mmHg LEFT VENTRICLE Limited echocardiogram for left ventricular function, mitral regurgitation and pulmonary artery press ure. The Left Ventricle is borderline dilated. There is mild concentric left ventricular hypertrophy. Left ventricle systolic function is severely impaired. The Ejection Fraction is estimated at 25%. Th ere is global hypokinesis of the left ventricle. No left ventricle thrombus noted on this study. RIGHT VENTRICLE The right ventricle is normal size. There is normal right ventricular wall thickness. The right ventr icular systolic function is normal. ATRIA The left atrium size is normal. The right atrium is borderline dilated. MITRAL VALVE The mitral valve leaflets are thickened. There is no evidence of mitral valve prolapse. There is no m itral valve stenosis. Doppler and Color Flow revealed mild mitral regurgitation. TRICUSPID VALVE Doppler and Color Flow revealed mild tricuspid regurgitation. The pulmonary artery systolic pressure is estimated at 33 mmHg. There is mild pulmonary hypertension. GREAT VESSELS not imaged The IVC is normal in size and collapses >50% with inspiration. PERICARDIAL EFFUSION There is no evidence of significant pericardial effusion. Critical Notification Critical Value: No <Conclusion> Limited echocardiogram for left ventricular function, mitral regurgitation and pulmonary artery press ure. The Left Ventricle is borderline dilated. Left ventricle systolic function is severely impaired. The Ejection Fraction is estimated at 25%. There is mild concentric left ventricular hypertrophy. Doppler and Color Flow revealed mild mitral regurgitation. Doppler and Color Flow revealed mild tricuspid regurgitation. The pulmonary artery systolic pressure is estimated at 33 mmHg. There is mild pulmonary hypertension.
[2017-01-17 19:00] VITALS: BP 123/75
[2017-01-17] MEDS: ATORVASTATIN CALCIUM 20 MG TABLET PO SCH (20:55)
[2017-01-17] MEDS: ISOSORBIDE MONONITRATE ER 30 MG TAB.ER.24H PO SCH (20:58)
[2017-01-17] MEDS: METOPROLOL TART IMMED RELEASE 25 MG TABLET. PO SCH (20:59)
[2017-01-17 23:00] VITALS: BP 107/47
[2017-01-18 04:40] LABS: BASO % 1 % (0-3); EOS % 2 % (0-3); HEMATOCRIT 31.6 % (36.0-47.0); HEMOGLOBIN 10.9 g/dL (12.0-15.5); LYMPH # 1.8 x10^3/uL (1.0-4.8); LYMPH % 32 % (24-48); MEAN CORPUSCULAR HEMOGLOBIN 31 pg (25-35); MEAN CORPUSCULAR HGB CONC 34 g/dL (31-37); MEAN CORPUSCULAR VOLUME 91 fL (79-100); MONO % 9 % (0-9); NEUT % 57 % (31-73); PLATELET COUNT 144 x10^3/uL (140-400); RED BLOOD COUNT 3.48 x10^6/uL (3.50-5.40); RED CELL DISTRIBUTION WIDTH 14.4 % (11.5-14.5); WHITE BLOOD COUNT 5.5 x10^3/uL (4.0-11.0)
[2017-01-18 05:03] LABS: ALBUMIN 2.9 g/dL (3.4-5.0); ALBUMIN/GLOBULIN RATIO 0.7 (1.0-1.7); CALCIUM 8.9 mg/dL (8.5-10.1); CREATININE 1.2 mg/dL (0.6-1.0); GFR 58.5; POTASSIUM 3.7 mmol/L (3.5-5.1); TOTAL BILIRUBIN 0.4 mg/dL (0.2-1.0); TOTAL PROTEIN 6.8 g/dL (6.4-8.2)
[2017-01-18] MEDS: BUTALB/APAP/CAFEIN 50/325/40MG TABLET. PO PRN (05:54)
--- NOTE | 2017-01-18 06:10 | EKG ---
[facility] [address] [place] [address] Test Date: 2017-01-17 Test Time: 11:35:06 Pat Name: FABIO RIVAS Department: Room: [facility] Gender: F Applications Sales Consultant: : 1970 Requested By: JANETH TORREZ Order Number: [id number] Reading MD: Mulu Jo Measurements Intervals [place] Rate: 69 P: -114 LA: 134 QRS: 35 QRSD: 88 T: -68 QT: 386 QTc: 415 Interpretive Statements SINUS RHYTHM VENTRICULAR PREMATURE COMPLEX(ES) INTERPOLATED VENTRICULAR PREMATURE COMPLEX(ES) LEFT ATRIAL ABNORMALITY T ABNORMALITY IN INFEROLATERAL LEADS ABNORMAL ECG Electronically Signed On 01-22-2017 14:55:44 CDT by Mulu Jo
[2017-01-18 07:10] VITALS: BP 120/57
[2017-01-18] MEDS: SPIRONOLACTONE 25 MG TABLET PO SCH (08:21)
[2017-01-18] MEDS: ASPIRIN CHEWABLE 81 MG TABLET. PO SCH (08:21)
[2017-01-18] MEDS: FUROSEMIDE 40 MG TABLET. PO SCH (08:22)
[2017-01-18] MEDS: AMIODARONE HCL 200 MG TABLET. PO SCH (08:23)
[2017-01-18] MEDS: LOSARTAN POTASSIUM 50 MG TABLET. PO SCH (08:24)
[2017-01-18] MEDS: METOPROLOL TART IMMED RELEASE 25 MG TABLET. PO SCH (08:25)
--- NOTE | 2017-01-18 10:04 | PDOC ---
PROGRESS NOTES Chief Complaint Chief Complaint cc: sob A/P 1. Palpitations: Multiple PVCs noted on telemetry, echocardiogram results reviewed in ejection fraction 25% same as old echocardiogram. Sodium potassium and other alkaloids appears to be normal in range replace magnesium today. 2. Acute on chronic combined diastolic/systolic CHF: NYHA 2. 2-3 weeks off several cardiac meds due to financial constraints. Patient says she is not insured at this time 3. Severe pulmonary HTN: 4. NICM: Ejection fraction of 25% 5. Accelerated HTN: Resolved, 6. CKD3 7. Noncompliance: Due to financial reasons, uninsured, case discussed with cardiology team on a waiting response from social welfare research worker, patient will be benefited with the life vest. History of Present Illness History of Present Illness Denies any chest pain or palpitations feeling better today Vitals Vitals Vital Signs Date Time Temp Pulse Resp B/P (MAP) Pulse Ox O2 Delivery O2 Flow Rate FiO2 01/18/17 08:25 42 01/18/17 08:24 120/57 01/18/17 07:10 97.8 16 98 Room Air 97.8 Physical Exam General: Alert, Cooperative, mild distress Heart: Regular rate, Normal S1, Normal S2, Other Lungs: Clear Abdomen: Normal bowel sounds, Soft, No tenderness, Other (obese) Extremities: No edema Skin: No significant lesion Labs LABS Laboratory Tests Test 01/17/17 11:40 01/17/17 12:45 01/17/17 20:35 01/18/17 03:20 White Blood Count 5.7 x10^3/uL (4.0-11.0) 5.5 x10^3/uL (4.0-11.0) Red Blood Count 3.61 x10^6/uL (3.50-5.40) 3.48 x10^6/uL (3.50-5.40) Hemoglobin 11.2 g/dL (12.0-15.5) 10.9 g/dL (12.0-15.5) Hematocrit 32.9 % (36.0-47.0) 31.6 % (36.0-47.0) Mean Corpuscular Volume 91 fL (79-100) 91 fL (79-100) Mean Corpuscular Hemoglobin 31 pg (25-35) 31 pg (25-35) Mean Corpuscular Hemoglobin Concent 34 g/dL (31-37) 34 g/dL (31-37) Red Cell Distribution Width 14.3 % (11.5-14.5) 14.4 % (11.5-14.5) Platelet Count 170 x10^3/uL (140-400) 144 x10^3/uL (140-400) Neutrophils (%) (Auto) 56 % (31-73) 57 % (31-73) Lymphocytes (%) (Auto) 35 % (24-48) 32 % (24-48) Monocytes (%) (Auto) 8 % (0-9) 9 % (0-9) Eosinophils (%) (Auto) 1 % (0-3) 2 % (0-3) Basophils (%) (Auto) 0 % (0-3) 1 % (0-3) Neutrophils # (Auto) 3.2 x10^3uL (1.8-7.7) 3.1 x10^3uL (1.8-7.7) Lymphocytes # (Auto) 2.0 x10^3/uL (1.0-4.8) 1.8 x10^3/uL (1.0-4.8) Monocytes # (Auto) 0.4 x10^3/uL (0.0-1.1) 0.5 x10^3/uL (0.0-1.1) Eosinophils # (Auto) 0.1 x10^3/uL (0.0-0.7) 0.1 x10^3/uL (0.0-0.7) Basophils # (Auto) 0.0 x10^3/uL (0.0-0.2) 0.0 x10^3/uL (0.0-0.2) Thyroid Stimulating Hormone (TSH) 1.420 uIU/mL (0.358-3.74) Sodium Level 144 mmol/L (136-145) 143 mmol/L (136-145) Potassium Level 4.3 mmol/L (3.5-5.1) 3.7 mmol/L (3.5-5.1) Chloride Level 110 mmol/L (98-107) 107 mmol/L (98-107) Carbon Dioxide Level 28 mmol/L (21-32) 28 mmol/L (21-32) Anion Gap 6 (6-14) 8 (6-14) Blood Urea Nitrogen 16 mg/dL (7-20) 14 mg/dL (7-20) Creatinine 1.2 mg/dL (0.6-1.0) 1.2 mg/dL (0.6-1.0) Estimated GFR (Cockcroft-Gault) 58.5 58.5 BUN/Creatinine Ratio 13 (6-20) 12 (6-20) Glucose Level 90 mg/dL (70-99) 85 mg/dL (70-99) Calcium Level 8.2 mg/dL (8.5-10.1) 8.9 mg/dL (8.5-10.1) Magnesium Level 1.6 mg/dL (1.8-2.4) Total Bilirubin 0.2 mg/dL (0.2-1.0) 0.4 mg/dL (0.2-1.0) Aspartate Amino Transf (AST/SGOT) 16 U/L (15-37) 15 U/L (15-37) Alanine Aminotransferase (ALT/SGPT) 14 U/L (14-59) 15 U/L (14-59) Alkaline Phosphatase 71 U/L (46-116) 66 U/L (46-116) Troponin I Quantitative 0.025 ng/mL (0.000-0.055) < 0.017 ng/mL (0.000-0.055) YO-Quu-S-Type Natriuretic Peptide 8593 pg/mL (0-124) Total Protein 6.7 g/dL (6.4-8.2) 6.8 g/dL (6.4-8.2) Albumin 3.1 g/dL (3.4-5.0) 2.9 g/dL (3.4-5.0) Albumin/Globulin Ratio 0.9 (1.0-1.7) 0.7 (1.0-1.7) Triglycerides Level 57 mg/dL (0-150) Cholesterol Level 163 mg/dL (0-200) LDL Cholesterol, Calculated 100 mg/dL (0-100) VLDL Cholesterol, Calculated 11 mg/dL (0-40) Non-HDL Cholesterol Calculated 111 mg/dL (0-129) HDL Cholesterol 52 mg/dL (40-60) Cholesterol/HDL Ratio 3.1 Assessment and Plan Assessmemt and Plan Problems Medical Problems: (1) CHF (congestive heart failure) Status: Acute Problems: Comment Review of Relevant I have reviewed the following items randy (where applicable) has been applied. Labs Laboratory Tests Test 01/17/17 11:40 01/17/17 12:45 01/17/17 20:35 01/18/17 03:20 White Blood Count 5.7 x10^3/uL (4.0-11.0) 5.5 x10^3/uL (4.0-11.0) Red Blood Count 3.61 x10^6/uL (3.50-5.40) 3.48 x10^6/uL (3.50-5.40) Hemoglobin 11.2 g/dL (12.0-15.5) 10.9 g/dL (12.0-15.5) Hematocrit 32.9 % (36.0-47.0) 31.6 % (36.0-47.0) Mean Corpuscular Volume 91 fL (79-100) 91 fL (79-100) Mean Corpuscular Hemoglobin 31 pg (25-35) 31 pg (25-35) Mean Corpuscular Hemoglobin Concent 34 g/dL (31-37) 34 g/dL (31-37) Red Cell Distribution Width 14.3 % (11.5-14.5) 14.4 % (11.5-14.5) Platelet Count 170 x10^3/uL (140-400) 144 x10^3/uL (140-400) Neutrophils (%) (Auto) 56 % (31-73) 57 % (31-73) Lymphocytes (%) (Auto) 35 % (24-48) 32 % (24-48) Monocytes (%) (Auto) 8 % (0-9) 9 % (0-9) Eosinophils (%) (Auto) 1 % (0-3) 2 % (0-3) Basophils (%) (Auto) 0 % (0-3) 1 % (0-3) Neutrophils # (Auto) 3.2 x10^3uL (1.8-7.7) 3.1 x10^3uL (1.8-7.7) Lymphocytes # (Auto) 2.0 x10^3/uL (1.0-4.8) 1.8 x10^3/uL (1.0-4.8) Monocytes # (Auto) 0.4 x10^3/uL (0.0-1.1) 0.5 x10^3/uL (0.0-1.1) Eosinophils # (Auto) 0.1 x10^3/uL (0.0-0.7) 0.1 x10^3/uL (0.0-0.7) Basophils # (Auto) 0.0 x10^3/uL (0.0-0.2) 0.0 x10^3/uL (0.0-0.2) Thyroid Stimulating Hormone (TSH) 1.420 uIU/mL (0.358-3.74) Sodium Level 144 mmol/L (136-145) 143 mmol/L (136-145) Potassium Level 4.3 mmol/L (3.5-5.1) 3.7 mmol/L (3.5-5.1) Chloride Level 110 mmol/L (98-107) 107 mmol/L (98-107) Carbon Dioxide Level 28 mmol/L (21-32) 28 mmol/L (21-32) Anion Gap 6 (6-14) 8 (6-14) Blood Urea Nitrogen 16 mg/dL (7-20) 14 mg/dL (7-20) Creatinine 1.2 mg/dL (0.6-1.0) 1.2 mg/dL (0.6-1.0) Estimated GFR (Cockcroft-Gault) 58.5 58.5 BUN/Creatinine Ratio 13 (6-20) 12 (6-20) Glucose Level 90 mg/dL (70-99) 85 mg/dL (70-99) Calcium Level 8.2 mg/dL (8.5-10.1) 8.9 mg/dL (8.5-10.1) Magnesium Level 1.6 mg/dL (1.8-2.4) Total Bilirubin 0.2 mg/dL (0.2-1.0) 0.4 mg/dL (0.2-1.0) Aspartate Amino Transf (AST/SGOT) 16 U/L (15-37) 15 U/L (15-37) Alanine Aminotransferase (ALT/SGPT) 14 U/L (14-59) 15 U/L (14-59) Alkaline Phosphatase 71 U/L (46-116) 66 U/L (46-116) Troponin I Quantitative 0.025 ng/mL (0.000-0.055) < 0.017 ng/mL (0.000-0.055) QH-Oqv-N-Type Natriuretic Peptide 8593 pg/mL (0-124) Total Protein 6.7 g/dL (6.4-8.2) 6.8 g/dL (6.4-8.2) Albumin 3.1 g/dL (3.4-5.0) 2.9 g/dL (3.4-5.0) Albumin/Globulin Ratio 0.9 (1.0-1.7) 0.7 (1.0-1.7) Triglycerides Level 57 mg/dL (0-150) Cholesterol Level 163 mg/dL (0-200) LDL Cholesterol, Calculated 100 mg/dL (0-100) VLDL Cholesterol, Calculated 11 mg/dL (0-40) Non-HDL Cholesterol Calculated 111 mg/dL (0-129) HDL Cholesterol 52 mg/dL (40-60) Cholesterol/HDL Ratio 3.1 Laboratory Tests Test 01/17/17 11:40 01/17/17 12:45 01/17/17 20:35 01/18/17 03:20 White Blood Count 5.7 x10^3/uL (4.0-11.0) 5.5 x10^3/uL (4.0-11.0) Red Blood Count 3.61 x10^6/uL (3.50-5.40) 3.48 x10^6/uL (3.50-5.40) Hemoglobin 11.2 g/dL (12.0-15.5) 10.9 g/dL (12.0-15.5) Hematocrit 32.9 % (36.0-47.0) 31.6 % (36.0-47.0) Mean Corpuscular Volume 91 fL (79-100) 91 fL (79-100) Mean Corpuscular Hemoglobin 31 pg (25-35) 31 pg (25-35) Mean Corpuscular Hemoglobin Concent 34 g/dL (31-37) 34 g/dL (31-37) Red Cell Distribution Width 14.3 % (11.5-14.5) 14.4 % (11.5-14.5) Platelet Count 170 x10^3/uL (140-400) 144 x10^3/uL (140-400) Neutrophils (%) (Auto) 56 % (31-73) 57 % (31-73) Lymphocytes (%) (Auto) 35 % (24-48) 32 % (24-48) Monocytes (%) (Auto) 8 % (0-9) 9 % (0-9) Eosinophils (%) (Auto) 1 % (0-3) 2 % (0-3) Basophils (%) (Auto) 0 % (0-3) 1 % (0-3) Neutrophils # (Auto) 3.2 x10^3uL (1.8-7.7) 3.1 x10^3uL (1.8-7.7) Lymphocytes # (Auto) 2.0 x10^3/uL (1.0-4.8) 1.8 x10^3/uL (1.0-4.8) Monocytes # (Auto) 0.4 x10^3/uL (0.0-1.1) 0.5 x10^3/uL (0.0-1.1) Eosinophils # (Auto) 0.1 x10^3/uL (0.0-0.7) 0.1 x10^3/uL (0.0-0.7) Basophils # (Auto) 0.0 x10^3/uL (0.0-0.2) 0.0 x10^3/uL (0.0-0.2) Thyroid Stimulating Hormone (TSH) 1.420 uIU/mL (0.358-3.74) Sodium Level 144 mmol/L (136-145) 143 mmol/L (136-145) Potassium Level 4.3 mmol/L (3.5-5.1) 3.7 mmol/L (3.5-5.1) Chloride Level 110 mmol/L (98-107) 107 mmol/L (98-107) Carbon Dioxide Level 28 mmol/L (21-32) 28 mmol/L (21-32) Anion Gap 6 (6-14) 8 (6-14) Blood Urea Nitrogen 16 mg/dL (7-20) 14 mg/dL (7-20) Creatinine 1.2 mg/dL (0.6-1.0) 1.2 mg/dL (0.6-1.0) Estimated GFR (Cockcroft-Gault) 58.5 58.5 BUN/Creatinine Ratio 13 (6-20) 12 (6-20) Glucose Level 90 mg/dL (70-99) 85 mg/dL (70-99) Calcium Level 8.2 mg/dL (8.5-10.1) 8.9 mg/dL (8.5-10.1) Magnesium Level 1.6 mg/dL (1.8-2.4) Total Bilirubin 0.2 mg/dL (0.2-1.0) 0.4 mg/dL (0.2-1.0) Aspartate Amino Transf (AST/SGOT) 16 U/L (15-37) 15 U/L (15-37) Alanine Aminotransferase (ALT/SGPT) 14 U/L (14-59) 15 U/L (14-59) Alkaline Phosphatase 71 U/L (46-116) 66 U/L (46-116) Troponin I Quantitative 0.025 ng/mL (0.000-0.055) < 0.017 ng/mL (0.000-0.055) WJ-Xoa-U-Type Natriuretic Peptide 8593 pg/mL (0-124) Total Protein 6.7 g/dL (6.4-8.2) 6.8 g/dL (6.4-8.2) Albumin 3.1 g/dL (3.4-5.0) 2.9 g/dL (3.4-5.0) Albumin/Globulin Ratio 0.9 (1.0-1.7) 0.7 (1.0-1.7) Triglycerides Level 57 mg/dL (0-150) Cholesterol Level 163 mg/dL (0-200) LDL Cholesterol, Calculated 100 mg/dL (0-100) VLDL Cholesterol, Calculated 11 mg/dL (0-40) Non-HDL Cholesterol Calculated 111 mg/dL (0-129) HDL Cholesterol 52 mg/dL (40-60) Cholesterol/HDL Ratio 3.1 Medications Current Medications Amiodarone HCl (Cordarone) 200 mg DAILY PO Last administered on 7/12/17at 08:23 ; Start 01/17/17 at 14:00 Aspirin (Children'S Aspirin) 81 mg DAILYWBKFT PO Last administered on 08:21; Start 01/17/17 at 14:00 Atorvastatin Calcium (Lipitor) 20 mg QHS PO Last administered on 01/17/17 20: 55; Start 01/17/17 at 21:00 Furosemide (Lasix) 40 mg DAILY PO Last administered on 01/18/17 08:22; Start 01/17/17 at 14:00 Hydralazine HCl (Apresoline) 50 mg TID PO Last administered on 01/18/17 08:22 ; Start 01/17/17 at 14:00 Isosorbide Mononitrate (Imdur) 30 mg QHS PO Last administered on 01/17/17 20: 58; Start 01/17/17 at 21:00 Spironolactone (Aldactone) 25 mg DAILY PO Last administered on 01/18/17 08:21 ; Start 01/17/17 at 15:00 Metoprolol Tartrate (Lopressor) 25 mg BID PO Last administered on 01/17/17 20: 59; Start 01/17/17 at 21:00 Losartan Potassium (Cozaar) 50 mg DAILY PO Last administered on 01/18/17 08:24 ; Start 01/17/17 at 14:00 Furosemide (Lasix) 40 mg 1X ONCE IVP Last administered on 01/17/17 17:01; Start 01/17/17 at 13:30; Stop 01/17/17 at 13:37; Status DC Ondansetron HCl (Zofran) 4 mg PRN Q8HRS PRN IV NAUSEA/VOMITING Last administered on 01/17/17 17:02; Start 01/17/17 at 14:45; Stop 01/18/17 at 14:44 Magnesium Sulfate/ Dextrose 50 ml @ 25 mls/hr 1X ONCE IV Last administered on 01/17/17 18:06; Start 01/17/17 at 16:30; Stop 01/17/17 at 18:29; Status DC Acetaminophen/ Butalbital/ Caffeine (Fioricet) 1 tab PRN Q6HRS PRN PO MIGRAINE HEADACHE Last administered on 01/18/17 05:54; Start 01/17/17 at 16:45 Acetaminophen (Tylenol) 650 mg PRN Q6HRS PRN PO headache; Start 01/17/17 at 16: 45 Active Scripts Active Amiodarone Hcl 200 Mg Tablet 200 Mg PO DAILY Cozaar (Losartan Potassium) 50 Mg Tablet 100 Mg PO DAILY Isosorbide Mononitrate Er (Isosorbide Mononitrate) 30 Mg Tab.er.24h 30 Mg PO QHS Furosemide 40 Mg Tablet 40 Mg PO DAILY Aldactone (Spironolactone) 25 Mg Tablet 25 Mg PO DAILY Hydralazine Hcl 50 Mg Tablet 50 Mg PO TID Norvasc (Amlodipine Besylate) 10 Mg Tablet 10 Mg PO DAILY Ventolin Hfa Inhaler (Albuterol Sulfate) 18 Gm Hfa.aer.ad 2 Puff IH PRN Q4-6HRS Klor-Con M20 (Potassium Chloride) 20 Meq Tablet.er 20 Meq PO DAILYWBKFT Prinivil (Lisinopril) 20 Mg Tablet 40 Mg PO DAILY Lasix (Furosemide) 40 Mg Tablet 40 Mg PO DAILY Children's Aspirin (Aspirin) 81 Mg Tab.chew 81 Mg PO DAILYWBKFT Lipitor (Atorvastatin Calcium) 20 Mg Tablet 20 Mg PO QHS Vitals/I & O Vital Sign - Last 24 Hours 01/17/17 01/17/17 01/17/17 01/17/17 11:30 12:00 12:30 13:00 Temp 97.9 97.9 Pulse 64 41 46 48 Resp 18 18 18 18 B/P (MAP) 164/97 (119) 155/91 (112) 138/70 (92) 142/88 (106) Pulse Ox 98 98 97 96 O2 Delivery Room Air Room Air Room Air Room Air 01/17/17 01/17/17 01/17/17 01/17/17 14:00 14:30 15:30 16:30 Temp 98.7 98.7 Pulse 44 44 44 56 Resp 18 18 18 20 B/P (MAP) 120/84 (96) 143/98 (113) 124/69 (87) 159/90 (113) Pulse Ox 98 97 98 95 O2 Delivery Room Air Room Air Room Air Room Air 01/17/17 01/17/17 01/17/17 01/17/17 16:30 17:00 17:00 17:01 Temp 98.7 98.7 Pulse 56 56 56 56 Resp 20 B/P (MAP) 159/90 (113) 159/90 159/90 159/90 Pulse Ox 95 O2 Delivery Room Air 01/17/17 01/17/17 01/17/17 01/17/17 19:00 20:57 20:58 20:59 Temp 98.4 98.4 Pulse 47 52 52 52 Resp 18 B/P (MAP) 123/75 (91) 127/90 127/90 127/90 Pulse Ox 97 O2 Delivery Room Air 01/17/17 01/18/17 01/18/17 01/18/17 23:00 07:10 08:22 08:23 Temp 98.1 97.8 98.1 97.8 Pulse 48 42 42 42 Resp 18 16 B/P (MAP) 107/47 (67) 120/57 (78) 120/57 120/57 Pulse Ox 98 98 O2 Delivery Room Air Room Air 01/18/17 01/18/17 08:24 08:25 Pulse 42 42 B/P (MAP) 120/57 Intake and Output 01/17/17 01/17/17 01/18/17 15:00 23:00 07:00 Intake Total 200 ml 300 ml Output Total 1450 ml 350 ml Balance -1250 ml -50 ml JASPER JONES MD Jan 18, 2017 10:04
[2017-01-18 10:49] VITALS: BP 117/77
--- NOTE | 2017-01-18 11:41 | PDOC ---
CARDIO Progress Notes Date and Time Date of Service 01/18/2017 Time of Evaluation 1130 Subjective Subjective: No Chest Pain, No shortness of breath, No Palpitations, No Dizziness Vitals Vitals Vital Signs Date Time Temp Pulse Resp B/P (MAP) Pulse Ox O2 Delivery O2 Flow Rate FiO2 01/18/17 10:49 98.1 44 20 117/77 (90) 95 Room Air 98.1 Weight Weight [ ] Input and Output Intake and Output Intake and Output 01/18/17 07:00 Intake Total 500 ml Output Total 1800 ml Balance -1300 ml Intake Oral 500 ml Output Urine Total 1800 ml Laboratory Labs Laboratory Tests Test 01/17/17 12:45 01/17/17 20:35 01/18/17 03:20 Sodium Level 144 mmol/L (136-145) 143 mmol/L (136-145) Potassium Level 4.3 mmol/L (3.5-5.1) 3.7 mmol/L (3.5-5.1) Chloride Level 110 mmol/L (98-107) 107 mmol/L (98-107) Carbon Dioxide Level 28 mmol/L (21-32) 28 mmol/L (21-32) Anion Gap 6 (6-14) 8 (6-14) Blood Urea Nitrogen 16 mg/dL (7-20) 14 mg/dL (7-20) Creatinine 1.2 mg/dL (0.6-1.0) 1.2 mg/dL (0.6-1.0) Estimated GFR (Cockcroft-Gault) 58.5 58.5 BUN/Creatinine Ratio 13 (6-20) 12 (6-20) Glucose Level 90 mg/dL (70-99) 85 mg/dL (70-99) Calcium Level 8.2 mg/dL (8.5-10.1) 8.9 mg/dL (8.5-10.1) Magnesium Level 1.6 mg/dL (1.8-2.4) Total Bilirubin 0.2 mg/dL (0.2-1.0) 0.4 mg/dL (0.2-1.0) Aspartate Amino Transf (AST/SGOT) 16 U/L (15-37) 15 U/L (15-37) Alanine Aminotransferase (ALT/SGPT) 14 U/L (14-59) 15 U/L (14-59) Alkaline Phosphatase 71 U/L (46-116) 66 U/L (46-116) Troponin I Quantitative 0.025 ng/mL (0.000-0.055) < 0.017 ng/mL (0.000-0.055) WH-Ucu-K-Type Natriuretic Peptide 8593 pg/mL (0-124) Total Protein 6.7 g/dL (6.4-8.2) 6.8 g/dL (6.4-8.2) Albumin 3.1 g/dL (3.4-5.0) 2.9 g/dL (3.4-5.0) Albumin/Globulin Ratio 0.9 (1.0-1.7) 0.7 (1.0-1.7) Triglycerides Level 57 mg/dL (0-150) Cholesterol Level 163 mg/dL (0-200) LDL Cholesterol, Calculated 100 mg/dL (0-100) VLDL Cholesterol, Calculated 11 mg/dL (0-40) Non-HDL Cholesterol Calculated 111 mg/dL (0-129) HDL Cholesterol 52 mg/dL (40-60) Cholesterol/HDL Ratio 3.1 White Blood Count 5.5 x10^3/uL (4.0-11.0) Red Blood Count 3.48 x10^6/uL (3.50-5.40) Hemoglobin 10.9 g/dL (12.0-15.5) Hematocrit 31.6 % (36.0-47.0) Mean Corpuscular Volume 91 fL (79-100) Mean Corpuscular Hemoglobin 31 pg (25-35) Mean Corpuscular Hemoglobin Concent 34 g/dL (31-37) Red Cell Distribution Width 14.4 % (11.5-14.5) Platelet Count 144 x10^3/uL (140-400) Neutrophils (%) (Auto) 57 % (31-73) Lymphocytes (%) (Auto) 32 % (24-48) Monocytes (%) (Auto) 9 % (0-9) Eosinophils (%) (Auto) 2 % (0-3) Basophils (%) (Auto) 1 % (0-3) Neutrophils # (Auto) 3.1 x10^3uL (1.8-7.7) Lymphocytes # (Auto) 1.8 x10^3/uL (1.0-4.8) Monocytes # (Auto) 0.5 x10^3/uL (0.0-1.1) Eosinophils # (Auto) 0.1 x10^3/uL (0.0-0.7) Basophils # (Auto) 0.0 x10^3/uL (0.0-0.2) Physical Exam HEENT: Neck Supple W Full Motion Chest: Symmetric LUNGS: Clear to Auscultation Heart: S1S2, RRR (SR with PVCs) Abdomen: Soft N/T Extremities: No Calf Tenderness Neurology: alert, oriented, follow commands Assessment Assessment 1. Palpitations: intermittent, likely from frequent PVCs. 2. Acute on chronic combined diastolic/systolic CHF: NYHA 2. Compensated 3. 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 4. NICM: notable for frequent PVCs. EF remains at 25% 5. Accelerated HTN: now controlled 6. CKD3 7. Noncompliance: unable to take full cardiac regimen with missed 2-3 week dosing due to financial constraints Recommendations 1. Continue lasix, aldactone, hydralazine, Imdur, losartan. DC low dose metoprolol with HR in the 40s. 2. Will confirm medicaid with SS and CM and if so then will arrange for possible lifevest. 3. Discussed and reinforced compliance for optimization and for possible consideration of AICD as an outpt. 4. Continue with secondarii prevention 5. Encourage to f/u in office in 2-4 weeks AMAN BARRON APRN Jan 18, 2017 11:41
[2017-01-18] MEDS ORDERED: MAGNESIUM SULFATE 2GM 50 ML IV ONE (12:00)
[2017-01-18 15:15] VITALS: BP 107/50
[2017-01-18 19:00] VITALS: BP 112/57
[2017-01-18] MEDS ORDERED: METOPROLOL TART IMMED RELEASE 25 MG TABLET. PO SCH (21:00)
[2017-01-18] MEDS: ATORVASTATIN CALCIUM 20 MG TABLET PO SCH (21:10)
[2017-01-18] MEDS: ACETAMINOPHEN 325 MG TABLET. PO PRN (21:10)
[2017-01-18] MEDS: ISOSORBIDE MONONITRATE ER 30 MG TAB.ER.24H PO SCH (21:13)
[2017-01-18 23:00] VITALS: BP 118/79
[2017-01-19] VITALS (7 sets, daily range): BP systolic 91–124; BP diastolic 37–62
[2017-01-19] MEDS: SPIRONOLACTONE 25 MG TABLET PO SCH (08:17)
[2017-01-19] MEDS: FUROSEMIDE 40 MG TABLET. PO SCH (08:18)
[2017-01-19] MEDS: ASPIRIN CHEWABLE 81 MG TABLET. PO SCH (08:18)
[2017-01-19] MEDS: AMIODARONE HCL 200 MG TABLET. PO SCH (08:26)
[2017-01-19] MEDS: LOSARTAN POTASSIUM 50 MG TABLET. PO SCH (08:26)
[2017-01-19] MEDS: ACETAMINOPHEN 325 MG TABLET. PO PRN (08:26)
[2017-01-19] MEDS ORDERED: METO25TA4 PO (10:40)
--- NOTE | 2017-01-19 10:43 | PDOC3 ---
Discharge Summary Visit Information Date of Admission: Jan 17, 2017 Date of Discharge: Jan 19, 2017 Admitting Diagnosis Comment: 1. Palpitations: intermittent, likely from frequent PVCs. 2. Acute on chronic combined diastolic/systolic CHF: NYHA 2. Compensated 3. 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 4. NICM: notable for frequent PVCs. EF remains at 25% 5. Accelerated HTN: now controlled 6. CKD3 7. Noncompliance: unable to take full cardiac regimen with missed 2-3 week dosing due to financial constraints Final Diagnosis Problems Medical Problems: (1) CHF (congestive heart failure) Status: Acute Brief Hospital Course Allergies Allergies Coded Allergies Type Severity Reaction Last Updated Verified No Known Drug Allergies 08/01/14 No Vital Signs Vital Signs Date Time Temp Pulse Resp B/P (MAP) Pulse Ox O2 Delivery O2 Flow Rate FiO2 01/19/17 08:26 85 124/47 01/19/17 08:00 Room Air 01/19/17 07:20 98.5 18 93 98.5 Lab Results Laboratory Tests Test 01/17/17 11:40 01/17/17 12:45 01/17/17 20:35 01/18/17 03:20 White Blood Count 5.7 x10^3/uL (4.0-11.0) 5.5 x10^3/uL (4.0-11.0) Red Blood Count 3.61 x10^6/uL (3.50-5.40) 3.48 x10^6/uL (3.50-5.40) Hemoglobin 11.2 g/dL (12.0-15.5) 10.9 g/dL (12.0-15.5) Hematocrit 32.9 % (36.0-47.0) 31.6 % (36.0-47.0) Mean Corpuscular Volume 91 fL (79-100) 91 fL (79-100) Mean Corpuscular Hemoglobin 31 pg (25-35) 31 pg (25-35) Mean Corpuscular Hemoglobin Concent 34 g/dL (31-37) 34 g/dL (31-37) Red Cell Distribution Width 14.3 % (11.5-14.5) 14.4 % (11.5-14.5) Platelet Count 170 x10^3/uL (140-400) 144 x10^3/uL (140-400) Neutrophils (%) (Auto) 56 % (31-73) 57 % (31-73) Lymphocytes (%) (Auto) 35 % (24-48) 32 % (24-48) Monocytes (%) (Auto) 8 % (0-9) 9 % (0-9) Eosinophils (%) (Auto) 1 % (0-3) 2 % (0-3) Basophils (%) (Auto) 0 % (0-3) 1 % (0-3) Neutrophils # (Auto) 3.2 x10^3uL (1.8-7.7) 3.1 x10^3uL (1.8-7.7) Lymphocytes # (Auto) 2.0 x10^3/uL (1.0-4.8) 1.8 x10^3/uL (1.0-4.8) Monocytes # (Auto) 0.4 x10^3/uL (0.0-1.1) 0.5 x10^3/uL (0.0-1.1) Eosinophils # (Auto) 0.1 x10^3/uL (0.0-0.7) 0.1 x10^3/uL (0.0-0.7) Basophils # (Auto) 0.0 x10^3/uL (0.0-0.2) 0.0 x10^3/uL (0.0-0.2) Thyroid Stimulating Hormone (TSH) 1.420 uIU/mL (0.358-3.74) Sodium Level 144 mmol/L (136-145) 143 mmol/L (136-145) Potassium Level 4.3 mmol/L (3.5-5.1) 3.7 mmol/L (3.5-5.1) Chloride Level 110 mmol/L (98-107) 107 mmol/L (98-107) Carbon Dioxide Level 28 mmol/L (21-32) 28 mmol/L (21-32) Anion Gap 6 (6-14) 8 (6-14) Blood Urea Nitrogen 16 mg/dL (7-20) 14 mg/dL (7-20) Creatinine 1.2 mg/dL (0.6-1.0) 1.2 mg/dL (0.6-1.0) Estimated GFR (Cockcroft-Gault) 58.5 58.5 BUN/Creatinine Ratio 13 (6-20) 12 (6-20) Glucose Level 90 mg/dL (70-99) 85 mg/dL (70-99) Calcium Level 8.2 mg/dL (8.5-10.1) 8.9 mg/dL (8.5-10.1) Magnesium Level 1.6 mg/dL (1.8-2.4) 1.9 mg/dL (1.8-2.4) Total Bilirubin 0.2 mg/dL (0.2-1.0) 0.4 mg/dL (0.2-1.0) Aspartate Amino Transf (AST/SGOT) 16 U/L (15-37) 15 U/L (15-37) Alanine Aminotransferase (ALT/SGPT) 14 U/L (14-59) 15 U/L (14-59) Alkaline Phosphatase 71 U/L (46-116) 66 U/L (46-116) Troponin I Quantitative 0.025 ng/mL (0.000-0.055) < 0.017 ng/mL (0.000-0.055) ZR-Mod-K-Type Natriuretic Peptide 8593 pg/mL (0-124) Total Protein 6.7 g/dL (6.4-8.2) 6.8 g/dL (6.4-8.2) Albumin 3.1 g/dL (3.4-5.0) 2.9 g/dL (3.4-5.0) Albumin/Globulin Ratio 0.9 (1.0-1.7) 0.7 (1.0-1.7) Triglycerides Level 57 mg/dL (0-150) Cholesterol Level 163 mg/dL (0-200) LDL Cholesterol, Calculated 100 mg/dL (0-100) VLDL Cholesterol, Calculated 11 mg/dL (0-40) Non-HDL Cholesterol Calculated 111 mg/dL (0-129) HDL Cholesterol 52 mg/dL (40-60) Cholesterol/HDL Ratio 3.1 Brief Hospital Course Ms. Benitez is a 46 old AA female, severe CHF low EF cardiomyopathy and unfortunately non compliance, SOA., CO managed with cards. NO signif change in cardiac meds just really needs to take home meds. COunselled here today 30 mins in room, discussed AICD, compliance, life vest etc,.ALL scripts written for her, {Pt seen and examined Dc 40 mins consult: cards PRoc: none Discharge Information Condition at Discharge: Improved, Stable Disposition/Orders: D/C to Home Scheduled Albuterol Sulfate (Ventolin Hfa Inhaler), 2 PUFF IH PRN Q4-6HRS Amiodarone Hcl (Amiodarone Hcl), 200 MG PO DAILY Amlodipine Besylate (Norvasc), 10 MG PO DAILY Aspirin (Children's Aspirin), 81 MG PO DAILYWBKFT Atorvastatin Calcium (Lipitor), 20 MG PO QHS Furosemide (Lasix), 40 MG PO DAILY Furosemide (Furosemide), 40 MG PO DAILY Hydralazine Hcl (Hydralazine Hcl), 50 MG PO TID Isosorbide Mononitrate (Isosorbide Mononitrate Er), 30 MG PO QHS Lisinopril (Prinivil), 40 MG PO DAILY Losartan Potassium (Cozaar), 100 MG PO DAILY Potassium Chloride (Klor-Con M20), 20 MEQ PO DAILYWBKFT Spironolactone (Aldactone), 25 MG PO DAILY BEATRICE PLUMMER MD Jan 19, 2017 10:43
[2017-01-19] MEDS: ISOSORBIDE MONONITRATE ER 30 MG TAB.ER.24H PO SCH (20:29)
[2017-01-19] MEDS: ATORVASTATIN CALCIUM 20 MG TABLET PO SCH (20:31)
[2017-01-20 03:35] VITALS: BP 93/36
[2017-01-20 07:34] VITALS: BP 174/59
[2017-01-20] MEDS: AMIODARONE HCL 200 MG TABLET. PO SCH (08:18)
[2017-01-20] MEDS: LOSARTAN POTASSIUM 50 MG TABLET. PO SCH (08:19)
[2017-01-20] MEDS: FUROSEMIDE 40 MG TABLET. PO SCH (08:19)
[2017-01-20] MEDS: ASPIRIN CHEWABLE 81 MG TABLET. PO SCH (08:19)
[2017-01-20] MEDS: SPIRONOLACTONE 25 MG TABLET PO SCH (08:19)
[2017-01-20 11:09] VITALS: BP 172/80
--- NOTE | 2017-01-20 12:06 | PDOC ---
Provider Note Provider Note did not dc yesterday - was waiting for lifevest To dc ltare after life vest Pt seen and examined and RN at bedside RX done BEATRICE PLUMMER MD Jan 20, 2017 12:06
[2017-01-20 15:30] VITALS: BP 147/87
[2017-01-20] MEDS ORDERED: MAGNESIUM HYDROXIDE 2,400 MG/30 ML ORAL.SUSP. PO ONE (17:00)
== END 2017-01-20 17:45 | disposition home or self-care (01) | DRG 291 ==
LOC: ER 11:26 → 6 SOUTH 14:35
PROVIDERS: ADMIT Internal Medicine; ATTEND Internal Medicine
DX: I13.0 Hypertensive heart and chronic kidney disease with heart failure and stage 1 through stage 4 chronic kidney disease, or unspecified chronic kidney disease (principal); I50.43 Acute on chronic combined systolic (congestive) and diastolic (congestive) heart failure; Z68.42 Body mass index [BMI] 45.0-49.9, adult; I42.9 Cardiomyopathy, unspecified; E66.01 Morbid (severe) obesity due to excess calories; I49.3 Ventricular premature depolarization; E11.22 Type 2 diabetes mellitus with diabetic chronic kidney disease; E78.00 Pure hypercholesterolemia, unspecified; E78.5 Hyperlipidemia, unspecified; M19.90 Unspecified osteoarthritis, unspecified site; R00.2 Palpitations; F12.90 Cannabis use, unspecified, uncomplicated; I27.2 Other secondary pulmonary hypertension; J44.9 Chronic obstructive pulmonary disease, unspecified; N18.3 Chronic kidney disease, stage 3 (moderate); Z90.710 Acquired absence of both cervix and uterus; Z86.32 Personal history of gestational diabetes; Z91.19 Patient's noncompliance with other medical treatment and regimen
CPT/HCPCS: 36415; 71010; 80053; 80061; 83735; 83880; 84443; 84484; 85027; 93005; 93308; J1940; J2405; J7060; 99285-25

== ENCOUNTER → 2019-06-10 | Outpatient (CLI) | payer OTHER ==
[~2019-06-10] MED LIST changes: -AMIO200T2 PO; +AMIO200T4 PO; -ASPI81TA44 PO; +ASPI81TA59 PO; +LOSA-73 PO; -LOSA50TA2 PO; -METO50TA2 PO; +METO50TA6 PO
--- NOTE | 2019-06-10 10:28 | RAD ---
EXAM: Lumbar spine, 2 views. HISTORY: Pain. COMPARISON: None. FINDINGS: 2 views of the lumbar spine are obtained. There is a transitional lumbosacral segment, considered a partially sacralized L5 segment for this dictation. Based on this numbering system, there are hypoplastic T12 ribs. There is minimal grade 1 anterolisthesis of L5 on S1. There is lumbar hyperlordosis. There is no fracture. IMPRESSION: 1. No acute osseous finding. 2. Transitional lumbosacral segment, a normal variant. 3. Grade 1 retrolisthesis at the lumbosacral junction and mild lumbar hyperlordosis. Electronically signed by: Maru Velazquez MD (06/10/2019 10:25 AM) [email or web address]
== END | disposition home or self-care (01) ==
LOC: RAD 09:27
PROVIDERS: ATTEND Family Medicine
DX: M53.87 Other specified dorsopathies, lumbosacral region (principal)
CPT/HCPCS: 72100

== ENCOUNTER → 2020-01-01 | Outpatient (CLI) | payer OTHER | END | disposition home or self-care (01) | LOC: PF 10:06 | PROVIDERS: ATTEND Internal Medicine Pulmonary Disease | DX: I27.20 Pulmonary hypertension, unspecified (principal) | CPT/HCPCS: 94060; 94640; 94664 ==